=== PATIENT | female | born 1970 | race Caucasian/White ===

== ENCOUNTER 2025-03-08 00:50 | Day surgery (SDC) | payer OTHER, SELFPAY ==
[2025-02-24 14:46] VITALS: BMI 35.6
--- NOTE | 2025-02-24 15:00 | PC.NURSE ---
Report to the Outpatient Waiting Room, entrance under the green pavilion located off [facility], at time _0600_ on date _[id number]_. Planned Procedure Time: _0730_.? Time changes happen often and if your time is changed the preop area will call you the afternoon before. - You and your visitor will be asked to self-screen and do not enter if you have any COVID symptoms. Please call surgeon if you need to reschedule. - A mask is optional within the hospital at this time. Patients may have clear liquids (water, carbonated beverages, clear teas, apple juice) until 3 hours prior to surgery with a maximum of 20 ounces. - No food from midnight until time of surgery and no smoking, or chewing tobacco (or any form of nicotine). No chewing gum, candy or mints. Take only the following medications with a SIP of water on the morning of surgery: __Atenolol, Duloxetine and if needed hydrocodone___ DO NOT STOP ANY OF YOUR OTHER PRESCRIPTION MEDICATIONS PRIOR TO SURGERY EXCEPT THE FOLLOWING Hold all vitamins and supplements for 3 days per anesthesiologist. Medications to discontinue per physician Date to take last akry__[id number]____ Please no make-up, nail lithuanian, hairspray, perfume, deodorant, or body powder the day of surgery.? No jewelry (including any body piercings) or valuables the day of surgery, leave them at home.? Please take a shower or bath the night before, or the morning of, surgery with an antibacterial soap.? Wear comfortable, loose fitting clothing.? - Jewelry must be removed prior to entering the operating room.? Rings and piercings that are not removed may be cut off. - The hospital will not accept responsibility for valuables.? - Please leave all valuables, including medications, at home the day of surgery. If you are going home after surgery, a licensed driver utility worker must drive you home.? - NO public transportation without another adult if you receive anesthesia. - We recommend that an adult stay with you for 24 hours following discharge. - We also recommend that you do not drive, make important decision, drink alcoholic beverages, or take any drugs that were not prescribed by your health care provider for at least 24 hours after your discharge time. Follow any additional instructions given to you from your surgeon. Telephone instructions given to __Regina__and asked if any additional questions and then verbalized understanding. Patient advised to call surgeon office or pre surgery nurse liaison [phone] if any additional questions.
--- NOTE | 2025-03-04 07:25 | PM.IMHP ---
H&P: HPI History of Present Illness Date/Time: 03/04/25 07:25 Chief Complaint: Patient has catching locking and pain of the right knee with a meniscal tear. She has failed conservative treatment like to proceed with arthroscopic intervention. Review of Systems Musculoskeletal: Musculoskeletal: Reports arthralgias, Reports joint swelling and Reports stiffness [facility] Surgical History Surgical History History of surgery Heart, Back, Rt knee, Rt Should, Gall bladder Social History Social History (Updated 02/04/25 @ 09:04 by Jessica Washington [facility]) Smoking packs per day: 1 Smoking cigarettes per day: 20.0 Years smoked: 15 Smoking pack-years: 15.00 Smoking status: Former smoker Tobacco type: cigarettes Smoking end date: 02/25/04 Alcohol intake: current Substance use: never Current Housing: Decline to Answer Concerned About Future Housing: Decline to Answer Difficulty Paying Gas/Electric Bills: Decline to Answer Difficulty Paying for Meds: Decline to Answer Currently Unemployed: Decline to Answer Education: Decline to Answer Difficulty w/ Childcare or Family Care: Decline to Answer Living arrangements: with family Spiritual care concerns: No Meds Home Medications and Allergies Home Medications ?Medication ?Instructions ?Recorded ?Confirmed ?Type atenolol 25 mg tablet 25 mg PO TID 12/08/24 02/24/25 History cetirizine 10 mg tablet (Zyrtec) 10 mg PO DAILY 12/08/24 02/24/25 History cholecalciferol (vitamin D3) 25 25 mcg PO DAILY 12/08/24 02/24/25 History mcg (1,000 unit) capsule hydrocodone 7.5 mg-acetaminophen 1 tablet PO Q6H PRN pain 12/08/24 02/24/25 History 300 mg tablet magnesium hydroxide 400 mg (170 mg 400 mg PO HS 12/08/24 02/24/25 History magnesium) chewable tablet mecobalamin (vitamin B12) 1,000 1,000 mcg PO DAILY 12/08/24 02/24/25 History mcg lozenges meloxicam 7.5 mg tablet 7.5 mg PO DAILY 12/08/24 02/24/25 History montelukast 10 mg tablet 10 mg PO DAILY 12/08/24 02/24/25 History (Singulair) duloxetine 60 mg capsule,delayed 60 mg PO DAILY 02/24/25 02/24/25 History release Allergies Allergy/AdvReac Type Severity Reaction Status Date / Time Sulfa (Sulfonamide Allergy rash Verified 02/24/25 14:43 Antibiotics) Exam Narrative: On exam she has catching locking and pain in the right knee. She is tender along the joint line as a positive Hiral's. Neurologically she is intact. She walks with antalgic gait. Eyes: General: appearance normal, both eyes and all related structures Neck: Neck: supple Resp: Effort & Inspection: normal respiratory effort Cardio: Rate: regular rate Rhythm: regular rhythm No Data to Display Assessment and Plan Assessment and plan (1) Acute medial meniscus tear of right knee: Code(s): S83.241A - Other tear of medial meniscus, current injury, right knee, initial encounter Status: Acute Assessment and Plan: Patient has a medial meniscal tear right knee. Conservative treatment has not been effective. It is she continues to have catching and mechanical symptoms. She would like to proceed with arthroscopic intervention. I discussed risks, benefits, limitations, and alternatives with the patient in detail. She would like to proceed as described. As noted in my previous dictation the radiologist and I somewhat disagree on the results of the MRI scan I told her there is a chance lose the the there is no tears radiologist read it although the meniscus is extruded. She understands with this may be just and the being a diagnostic arthroscopy.
[2025-03-08] VITALS (8 sets, daily range): BP systolic 93–124; BP diastolic 54–80; PULSE 43–63; RESP 10–16; TEMP 36.6; O2SAT 94–100
--- OUTSIDE RECORDS SUMMARY | 2025-03-08 00:53 | XMS_ITS | Continuity of Care Document ---
Author Name [facility] Organization [facility] Care Team Providers Care Paralegals Name Role Phone [facility] Unavailable Unavailable Problems Combined list of problems from Department of Defense and [facility] facilities. It does not include entries that were removed or entered in error. Problem Status Onset Date Problem Type Date of Resolution Comments Source Right knee pain Active 11/16/20 24 Diagnosis 6130C-Af- C-[facility] Back pain Active Condition 6130C-Af- C-[facility] Chronic allergic conjunctivitis1 Active Condition Outside Sour ce Comment: Ocular antihistamine PRN for itching 6130C-Af- C-[facility] Esophageal reflux finding2 Active Condition Outside Source Comment: Medication is working well needs refills 6130C-Af- C-[facility] Generalized anxiety disorder Active Condition 6130C-Af- C-[facility] Major depressive disorder Active Condition 6130C-Af- C-[facility] Migraine Active Condition 6130C-Af- C-[facility] Moderate persistent asthma Active Condition 6130C-Af- C-[facility] PTSD - Post-traumatic stress disorder Active Condition 6130C-Af- C-[facility] Supraventricular tachycardia3 Active Condition Outside Source Comment: Anxiety component as well per the patient. Unclear current palpitations are SVT versus sinus tachycardia. Cardiology referral 6130C-Af- C-[facility] Tachycardia Active Condition 6130C-Af- C-[facility] Allergies, Adverse Reactions, Alerts Combined list of allergies from Department of Defense and Veterans Affairs facilities. It does not include entries that were removed or entered in error. Substance Category Reaction Severity Reaction type Status Date Reported Comments Source acetaminoph en-oxycodon e Propensity to adverse reactions to substance Unknown Active nausea Unknown Organiza tion cefprozil Propensity to adverse reactions to substance Unknown Active 9 Unknown Organiza tion celecoxib Propensity to adverse reactions to substance Unknown Active ulceration s Unknown Organiza tion cephalexin Propensity to adverse reactions to substance Unknown Active 9 Unknown Organiza tion Nuts Food allergy Anaphylaxis Severe Active 6130C-Af -C-[facility] shellfish Propensity to adverse reactions to substance Swelling Active 8 Unknown Organiza tion sulfa drugs Propensity to adverse reactions to substance Rash Active 9 Unknown Organiza tion traMADol Propensity to adverse reactions to substance Unknown Active nausea Unknown Organiza tion Immunizations Combined list of available immunizations from the Department of Defense and Veterans Affairs facilities. Immunization Series Date Given Administered By Site Reaction Lot Number CVX Code Drug Public Health Registrar Status Comments Source influenza, seasonal, injectable 2013 Margareth Arm [id number] sanofi pasteur complet ed influenza , seasonal, injectabl e 12/29/13 Given Ambulat ory Pharmac y tetanus, diphtheria, acellular pertu is 2008 Sarbjit gallagher Arm [id number] GlaxoSmithKli ne complet ed tetanus, diphtheri a, acellular pertussis 11/11/09 Given Ambulat ory Pharmac y influenza virus vaccine, live 2008 [id number] 111 [employer] complet ed influenza virus vaccine, live 11/11/09 Given Ambulat ory Pharmac y DTaP 1981 Transcr ibed 20 Unknown complet ed DTaP 05/19/82 Given Ambulat ory Pharmac y DTaP 1972 Transcr ibed 20 Unknown complet ed DTaP 09/30/73 Given Ambulat ory Pharmac y poliovirus vaccine, inactivated 1972 Transcr ibed 10 Unknown complet ed polioviru s vaccine, inactivat ed 08/31/73 Given Ambulat ory Pharmac y DTaP 1972 Transcr ibed 20 Unknown complet ed DTaP 08/31/73 Given Ambulat ory Pharmac y measles/mumps /rubella virus vaccine 1972 Transcr ibed 03 Unknown complet ed measles/m umps/rube lla virus vaccine 08/14/73 Given Ambulat ory Pharmac y poliovirus vaccine, inactivated 1972 Transcr ibed 10 Unknown complet ed polioviru s vaccine, inactivat ed 72 Given Ambulat ory Pharmac y Results Combined list of recent chemistry, hematology and other laboratory results from Department of Defense and Veterans Affairs, ranging from 15 months to all on record, depending upon the facility. Order Name Results Value Reference Range Date Interpretation Specimen Comments Source Immunology /Serology Thyroid Peroxidase Ab <15 IU/mL 07/25 N Interpretive Data: Values above 35 IU/mL are generally associated with autoimmune thyroiditis, but elevations are also seen in other autoimmune diseases. In patients with subclinical hypothyroidi sm, the presence of thyroperoxid ase (TPO) antibodies predicts a higher risk of developing overt hypothyroidi sm, 4.3% per year versus 2.1% per year in antibody-neg ative individuals. Furthermore, it raises the concern that such patients may be at increased risk of developing other autoimmune diseases, such as adrenal insufficienc y and type 1 diabetes. The frequency of detectable anti-TPO observed in nonimmune thyroid disease is similar to the 10% to 12% observed in a healthy population with normal thyroid function. There is a good association between the presence of autoantibodi es against TPO and histological thyroiditis. However, in view of the extensive regenerative capacity of the thyroid under the influence of thyroid-stim ulating hormone, chronic thyroid disease may be present for years before the clinical manifestatio n of hypothyroidi sm becomes evident, if ever. Moderately increased levels of thyroperoxid ase (TPO) antibodies may be found in patients with nonthyroid autoimmune disease such as pernicious anemia, type 1 diabetes, or other disorders that activate the immune system. No reference ranges available for pediatric patients. Methodology: Electrochemi luminescence 5600A-U [facility] Chemistry Hemoglobin A1c 5.5 % 4.0 - 5.6 07/24 N Interpretive Data: Normal: 4.0 - 5.6% Increased Risk: 5.7 - 6.4% Diabetic Range: 6.5% For patients without diabetes, the normal range for the hemoglobin A1c test is between 4% and 5.6%. Hemoglobin A1c levels between 5.7% and 6.4% indicate increased risk of diabetes, and levels of 6.5% or higher indicate diabetes. Because studies have repeatedly shown that akw-vi-ugeac ol diabetes results in complication s from the disease, the goal for people with diabetes is a hemoglobin A1c less than 7%. The higher the hemoglobin A1c, the higher the risks of developing complication s related to diabetes. If confirmation is needed, consider recalling the patient and ordering Hemoglobin Electrophore sis. [facility] Chemistry eAvg Glucose 111 mg/dL 07/[address] [place] [address] Chemistry eGFR CKD EPI 105 mL/min /1.73_ m2 07/10 Interpretive Data: Estimated Glomerular Filtration Rate (eGFR) calculated using the 2020 Chronic Kidney Disease-Epid emiology (CKD-EPI) Collaboratio n creatinine equation; units of measure are mL/min/1.73 m2. Results are only valid for adults (>=18 years) whose serum creatinine is in steady state. eGFR calculations are not valid for patients with acute kidney injury and for patients on dialysis. Creatinine-b ased estimates of kidney function may also be inaccurate in patients with reduced creatinine generation due to decreased muscle mass (e.g., malnutrition , severe hypoalbumine alva, sarcopenia, chronic neuromuscula r disease, amputations, severe heart failure or liver disease) and in patients with increased creatinine generation due to increased muscle mass (e.g., muscle builders, anabolic steroids) or increased dietary intake. CKD is diagnosed based on abnormalitie s of kidney structure or function, present for >3 months, with implications for health and disease. CKD is classified and staged based on cause, eGFR and albuminuria (quantified as urine albumin to creatinine ratio). An eGFR >60 mL/min/1.73 m2 in the absence of increased urine albumin excretion or structural abnormalitie s does not CKD. eGFR provides only an estimate of measured GFR within +/- 30% for most patients. As mentioned, nutritional status and muscle mass, among many factors, may lead to inaccuracy in the estimate. Consider ordering the creatinine-c ystatin C panel if better accuracy is needed for clinical decision-consuelo ing. eGFR (mL/min/1.73 m2) CKD stage Interpretati on Normal 60-89 Mild decrease 45-59 Mild to moderate decrease 30-44 Moderate to severe decrease 15-29 Severe decrease <15 Kidney failure -3 [facility] Chemistry BUN/Creat Ratio 13 mg/dL 12 - 20 07/10 N [address] [place] [address] Chemistry AGAP 12.00 0.00 - 15.00 07/[address] [place] [address] Chemistry Calcium 9.6 mg/dL 8.4 - 10.2 07/[address] [place] [address] Chemistry BUN 9 mg/dL 7 - 20 07/10 N - [address] [place] [address] Chemistry Chloride 109 mmol/L 98 - 107 07/[address] [place] [address] Chemistry Creatinine Level 0.70 mg/dL 0.57 - 1.11 07/[address] [place] [address] Chemistry Glucose Lvl 107 mg/dL 74 - 99 07/[address] [place] [address] Chemistry Potassium Lvl 4.4 mmol/L 3.5 - 5.1 07/[address] [place] [address] Chemistry CO2 25 mmol/L 22 - 29 07/[address] [place] [address] Chemistry Sodium 146 mmol/L 136 - 145 07/[address] [place] [address] Chemistry HDL Cholesterol 46 mg/dL 40 - 59 07/10 N Interpretive Data: HDL (HIGH DENSITY LIPOPROTEIN) : ADULTS: Low: < 40 mg/dL High: >/= 60 mg/dL AGES 0 -19: Low: < 40 mg/dL Borderline Low: 40 - 45 mg/dL Acceptable: > 45 mg/dL [address] [place] [address] Chemistry Chol/HDL 6 mg/dL 07/[address] [place] [address] Chemistry Triglycerid es 330 mg/dL 7 - 149 07/10 H Interpretive Data: AGES 0-9: Desirable: < 75 mg/dL Borderline High: 75-99 mg/dL High: >/= 100 mg/dL AGES 10-19: Desirable: < 90 mg/dL Borderline High: 90-129 mg/dL High: >/= 130 mg/dL ADULTS: Desirable: < 150 mg/dL Borderline High: 150-199 mg/dL High: >/= 240 mg/dL Very High: >/= 500 mg/dL [address] [place] [address] Chemistry Cholesterol Total 274 mg/dL 07/10 H Interpretive Data: According to the [place] [employer]: AGES 0-19: Desirable: < 170 mg/dL Borderline High: 170-199 mg/dL High Blood Cholesterol: >/= 200 mg/dL ADULTS: Desirable < 200 mg/dL Borderline High: 200-239 mg/dL High Blood Cholesterol: >/= 240 mg/dL -[address] [place] [address] Chemistry LDL 196 mg/dL 100 - 130 07/10 H Interpretive Data: AGES 0-19: Desirable: < 110 mg/dL Borderline High: 110-129 mg/dL High: >/= 130 mg/dL ADULTS: Desirable: <100 mg/dL Near/above optimal: 100-130 mg/dL Borderline High: 131-159 mg/dL High: 160-189 mg/dL Very High: 190 mg/dL - [facility] [place] Chemistry LDL/HDL 4 07/10- [address] [place] [address] Chemistry TSH 1.700 mIU/L 0.270 - 4.200 07/10 N Interpretive Data: Recommend: TPO/Thyroper oxidase Antibody when TSH result is > 4.2 uIU/mL 5600A-U [facility] EPIL[facility] Vital Signs Combined list of inpatient and outpatient Vital Signs from Department of Defense and Veterans Affairs, ranging from 12 months to all on record, depending upon the facility. Vital Sign Value Date Comments Source Systolic Blood Pressure 115 mm[Hg] 06/18/2024 14:56:00 6204U-Hi-V-375 [facility] Diastolic Blood Pressure 75 mm[Hg] 06/18/2024 14:56:00 3368R-Rr-M-375 [facility] BP Site Left arm 06/18/2024 14:56:00 30C -Gerri-C-375 [facility] Blood Pressure Manual Automatic 06/18/2024 14:56:00 1984M-Vo-T-375Th [facility] Temperature Oral 36.7 Khushboo 06/18/2024 14:56:00 4193F-Rw-B-375 [facility] Respiratory Rate 16 br/min 06/18/2024 14:56:00 3543A-Xk-X-375Th [facility] Peripheral Pulse Rate 70 bpm 06/18/2024 14:56:00 5229T-Rv-S-375 [facility] Mean Arterial Pressure, Calc 88 mm[Hg] 06/18/2024 14:56:00 0875M-Rm-Y-3 [facility] Respiratory Rate 14 br/min 08/13/2024 13:26:00 8041M-Dm-L-[facility] BP Site Left arm 08/13/2024 13:26:00 6130C -Af-C-[facility] Blood Pressure Manual Automatic 08/13/2024 13:26:00 1371T-Fy-T-[facility] Systolic Blood Pressure 106 mm[Hg] 08/13/2024 13:26:00 5661V-Eu-M-[facility] Diastolic Blood Pressure 73 mm[Hg] 08/13/2024 13:26:00 6346E-Ea-O-375[facility] Mean Arterial Pressure, Calc 84 mm[Hg] 08/13/2024 13:26:00 0046S-Qm-O-3 [facility] Peripheral Pulse Rate 56 bpm 08/13/2024 13:26:00 4355W-Es-R-[facility] Systolic Blood Pressure 103 mm[Hg] 10/09/2023 15:45:00 9990D-Uu-G-[facility] Diastolic Blood Pressure 72 mm[Hg] 10/09/2023 15:45:00 0309E-Lj-I-[facility] Blood Pressure Manual Automatic 10/09/2023 15:45:00 9213T-Pl-S-375[facility] BP Site Right arm 10/09/2023 15:45:00 6130C -Af-C-[facility] Mean Arterial Pressure, Calc 82 mm[Hg] 10/09/2023 15:45:00 6082O-Em-V-3 [facility] Respiratory Rate 16 br/min 10/09/2023 15:45:00 9240D-Or-R-[facility] Peripheral Pulse Rate 72 bpm 10/09/2023 15:45:00 4444C-Ml-A-[facility] Systolic Blood Pressure 118 mm[Hg] 10/31/2023 20:44:00 9589P-Xe-H-375[facility] Diastolic Blood Pressure 67 mm[Hg] 10/31/2023 20:44:00 4511X-Sd-Y-[facility] Mean Arterial Pressure, Calc 84 mm[Hg] 10/31/2023 20:44:00 0360U-Py-H-3 [facility] Peripheral Pulse Rate 57 bpm 10/31/2023 20:44:00 9836M-Fz-A-[facility] Respiratory Rate 18 br/min 10/31/2023 20:44:00 7384Y-Pg-X-375[facility] BP Site Left arm 10/31/2023 20:44:00 6130C -Af-C-375[facility] Blood Pressure Manual Automatic 10/31/2023 20:44:00 8831M-Ng-K-375[facility] Temperature Oral 36.4 Khushboo 07/18/2023 15:11:00 6624Y-Ph-N-375[facility] Respiratory Rate 16 br/min 07/18/2023 15:11:00 6455V-Ti-W-375[facility] Peripheral Pulse Rate 83 bpm 07/18/2023 15:11:00 2075T-Hr-X-375[facility] Mean Arterial Pressure, Calc 79 mm[Hg] 07/18/2023 15:11:00 6978L-Mj-V-3 [facility] Blood Pressure Manual Automatic 07/18/2023 15:11:00 3920I-Ib-O-[facility] BP Site Left arm 07/18/2023 15:11:00 6130C -Af-C-375[facility] Systolic Blood Pressure 103 mm[Hg] 07/18/2023 15:11:00 9281C-Vw-Y-[facility] Diastolic Blood Pressure 67 mm[Hg] 07/18/2023 15:11:00 6678E-Fr-Y-375[facility] Blood Pressure Manual Automatic 07/30/2023 14:21:00 1204A-Gt-A-375[facility] BP Site Left arm 07/30/2023 14:21:00 6130C -Af-C-[facility] Respiratory Rate 16 br/min 07/30/2023 14:21:00 2098G-Rq-S-375[facility] Mean Arterial Pressure, Calc 86 mm[Hg] 07/30/2023 14:21:00 8667L-Jw-I-3 [facility] Peripheral Pulse Rate 82 bpm 07/30/2023 14:21:00 1058Z-Qc-P-[facility] Systolic Blood Pressure 109 mm[Hg] 07/30/2023 14:21:00 3806Z-Al-C-[facility] Diastolic Blood Pressure 75 mm[Hg] 07/30/2023 14:21:00 8027M-Jp-I-[facility] Systolic Blood Pressure 106 mm[Hg] 11/03/2024 17:22:00 5277O-We-Y-[facility] Diastolic Blood Pressure 68 mm[Hg] 11/03/2024 17:22:00 5521H-Hb-T-[facility] Blood Pressure Manual Automatic 11/03/2024 17:22:00 0027J-Ea-K-[facility] BP Site Left arm 11/03/2024 17:22:00 6130C -Af-C-[facility] Peripheral Pulse Rate 68 bpm 11/03/2024 17:22:00 2972A-Ra-U-[facility] Mean Arterial Pressure, Calc 81 mm[Hg] 11/03/2024 17:22:00 0436N-Wb-I-3 [facility] Systolic Blood Pressure 97 mm[Hg] 07/08/2023 19:05:00 0706G-Ag-C-[facility] Diastolic Blood Pressure 63 mm[Hg] 07/08/2023 19:05:00 1781E-Dt-W-[facility] Mean Arterial Pressure, Calc 74 mm[Hg] 07/08/2023 19:05:00 4682L-Hq-X-3 [facility] Peripheral Pulse Rate 64 bpm 07/08/2023 19:05:00 9612C-Mo-F-[facility] Respiratory Rate 16 br/min 07/08/2023 19:05:00 1939X-Pv-W-[facility] BP Site Left arm 07/08/2023 19:05:00 6130C -Af-C-[facility] Blood Pressure Manual Automatic 07/08/2023 19:05:00 1565P-Ws-P-[facility] Systolic Blood Pressure 105 mm[Hg] 09/12/2023 13:21:00 7705O-Wl-F-[facility] Diastolic Blood Pressure 72 mm[Hg] 09/12/2023 13:21:00 4124Q-Tw-F-[facility] Mean Arterial Pressure, Calc 83 mm[Hg] 09/12/2023 13:21:00 2145J-Ec-U-3 [facility] Peripheral Pulse Rate 77 bpm 09/12/2023 13:21:00 3340G-Mp-P-[facility] Respiratory Rate 16 br/min 09/12/2023 13:21:00 4187M-Ij-F-[facility] BP Site Left arm 09/12/2023 13:21:00 6130C -Af-C-[facility] Blood Pressure Manual Automatic 09/12/2023 13:21:00 4818Q-Ky-Q-[facility] Peripheral Pulse Rate 62 bpm 07/05/2023 16:00:00 3784T-Sr-K-[facility] Mean Arterial Pressure, Calc 77 mm[Hg] 07/05/2023 16:00:00 3512Y-Ir-C-3 [facility] Respiratory Rate 18 br/min 07/05/2023 16:00:00 6458H-Oq-Q-[facility] Systolic Blood Pressure 98 mm[Hg] 07/05/2023 16:00:00 1418B-Lc-R-[facility] Diastolic Blood Pressure 67 mm[Hg] 07/05/2023 16:00:00 8204K-Nx-C-[facility] Blood Pressure Manual Automatic 07/05/2023 16:00:00 9600V-Ui-G-[facility] BP Site Left arm 07/05/2023 16:00:00 6130C -Af-C-[facility] Encounters Combined list of: 1) Encounters from Department of Veterans Affairs facilities going backup to the last 18 months, not all MI inpatient encounters are included; 2) Encounters from the Department of [facility] facilities going backup to 280 months. Location Location Details Encounter Type Encounter Number Reason For Visit Attending Provider ADM Date DC Date Status Disposition Source 0055A-375 th [facility] Outpatient [id number] TOMAS BARBOUR 11/10 Discharge Disposition: Home or Self Care 0055A-3 [facility] [place] 6130C-Af- C-[facility] Between Visit [id number] Pain in right knee 11/16 Discharge Disposition: Home or Self Care 6130C-A f-C-375 [facility] [place] 6130C-Af- C-[facility] Between Visit [id number] 02/08 Discharge Disposition: Home or Self Care 6130C-A f-C-375 [facility] [place] 6130C-Af- C-375Th [facility] Between Visit [id number] 02/17 Discharge Disposition: Home or Self Care 6130C-A f-C-375 [facility] [place] 6130C-Af- C-[facility] Between Visit [id number] 02/19 Discharge Disposition: Home or Self Care 6130C-A f-C-375 [facility] [place] Procedures Combined list of: 1) Procedures from Department of Veterans Affairs facilities going back up to thelast 18 months, not all MI non-surgical procedures are included; 2) All procedures from the Department of [facility] facilities. Procedure Procedure Type Code Date Perfomer Comments Sourc e No data available for this section Ambulatory P harmacy Social History Combined list of available smoking, tobacco, and other social history from Department of Defense and Veterans Affairs facilities. Social History Type Response Date Comment Sourc e Sex Representation Female (finding) 10/06/2021 Unknown Organization Tobacco Frequent/Daily expos ure to secondhand smoke in indoor/confined spaces No. Cigarette use: Former-cigarette user. Other Tobacco use: Never-other tobacco user (not cigarettes). Ambulatory Pharmacy Sexual Orientation Ambula tory Pharmacy Gender identity Ambulator y Pharmacy Assessment and Plan Combined list of future care activities from Department of Defense and Veterans Affairs facilities (e.g., assessment and plan notes, appointments, orders, and referrals). Additional future care activities may be listed in the Plan of Care section. Result Assessment and Plan Date Source Assessment and Plan Extracted from:Title : [facility] [place] - Right knee pain Author: TOMAS ORTIZ DO Date: 11/03/24 1. R ight knee pain C hronic. Stable. History and physical exam suspicious for further meniscal damage, mild laxity with valgus stress concerning for possible MCL damage. Given that pt has failed conservative measures, will obtain x-ray. MRI of right knee and refer pt to ortho. Will further disposition as needed based on imaging. Tomas Ortiz DO, Alexis, [employer], Legal Contracts Specialist [facility], [place] [employer] Addendum by PAULA STEPHEN MD on November 09, 2024 08:36:10 HOME AID I certify that I was present for case discussion in the Family Medicine preceptor room at the time of this encounter. I have reviewed the note and agree with the findings, assessment, and plan except as I have documented below. Follow up as listed. All labs/imaging/consults to be followed by the ordering provider. Paula Stephen MD Extracted from:Title: R Knee Pain - Office Clinic Note Author: ARNOLD ZAVALA MD Date: 08/13/24 1. R ight knee pain Acute, right knee pain with mild swelling. Physical exam c/w IT band tenosynovitis vs. meniscal tear Hx of meniscal tear and surgery in early . Able to bear weight and ambulate. Discussed conservative managment, NSAIDs (recommend doubling dose of meloxicam for 1-2 weeks) Discussed obtaining XR, but patient declined XR at this time, doubt fracture, more likely soft tissue with possible underlying arthritis given prior surgery. Recommended PT, patient requesting home physical therapy, given Rx3 handouts If no improvement in 4-6 weeks, consider xray, MRI and possible referral to ortho 2. A llergy to peanut Patient reports severe allergy to peanut Rx for epi-pen written Ordered: EPINEPHrine(EpiPen 2-Srikanth 0.3 mg injectable kit), See Instructions, Inject 1 pen into muscle of mid-outer thigh as needed for allergic emergency. Seek medical attention. May repeat dose with new pen after 5 minutes if symptoms persist, # 2 EA, 0 total refill(s), Maintenance, Inject 1 pen into muscle... [ Orders: meloxicam(Mobic 7.5 mg oral tablet), 1 tab(s), Oral, Daily, # 90 tab(s), 1 total refill(s), Maintenance, 1 tab(s) Oral Daily,x90 days, Pharmacy: [facility] #[id number] [External Rx] Addendum by ARNOLD ZAVALA MD on August 13, 2024 10:03:54 CDT Also, patient had bradycardia on visit, asymptomatic, has had bradycardia in the past. Observe for now. Extracted from:Title: [facility] [place]- tachycardia Author: DONALD SOLORZANO MD Date: 06/18/24 1. T achycardia 53y/o F with elevated HR after minimal execution such after [address] Hx of 3x ablations. Has not seen Cardio in many years. May need Holter monitor and or ablation. Plan: - Refer to Cardio Ordered: Referral Request 2.0 - DoD 2. S upraventricular tachycardia See above. Ordered: Referral Request 2.0 - DoD Capt [place] (), [facility] Legal Contracts Specialist PGY-[address] [place] [address] Operations [facility] [place], [place] Addendum by RICARDO GALEAS MD on June 18, 2024 17:01:18 CDT I certify that I was present for case discussion in the Family Medicine preceptor room at the time of this encounter. I have reviewed the note and agree with the findings, assessment, and plan except as I have documented below. Follow up as listed. All labs/imaging/consults to be followed by the ordering provider. Maj Brenda Crane) Family Medicine Physician [facility] [place], [place] Extracted from:Title: FM Meds Refill Author: ALEX BLAKE MD Date: 03/31/24 1. S easonal allergy Chronic, well controlled. Refill montelukast and zyrtec. Ordered: montelukast(montelukast 10 mg oral tablet), 1 tab(s), Oral, Daily, # 90 tab(s), 3 total refill(s), Maintenance, 1 tab(s) Oral Daily, Pharmacy: [facility] #[id number] [External Rx] cetirizine(ZyrTEC 10 mg oral tablet), 1 tab(s), Oral, BID, PRN allergy symptoms, # 180 tab(s), 3 total refill(s), Maintenance, 1 tab(s) Oral BID,PRN:allergy symptoms, Pharmacy: [facility] #[id number] [External Rx] 2. S upraventricular tachycardia Symptoms well controlled. Refill atenolol 25 mg BID. Orders: atenolol(atenolol 25 mg oral tablet), 1 tab(s), Oral, BID, 180 tab(s), 0 Refill(s), # 180 tab(s), 3 total refill(s), Maintenance, 1 tab(s) Oral BID,Instr:180 tab(s), 0 Refill(s), Pharmacy: [facility] #[id number] [External Rx] Alex Blake MD Legal Contracts Specialist, PGY-3 [place] Addendum by PAULA STEPHEN MD on March 31, 2024 09:13:01 CDT I certify that I was present for case discussion in the Family Medicine preceptor room at the time of this encounter. I have reviewed the note and agree with the findings, assessment, and plan except as I have documented below. Follow up as listed. All labs/imaging/consults to be followed by the ordering provider. Paula Stephen MD Extracted from:Title: FM - Referrals Author: ARANZA PANCHAL MD-RESIDENT Date: 02/14/24 1. B ack pain Chronic, uncontrolled. Is scheduled but needs referral for pain management. Pain Management physician requesting XR spine. Ordered. Ordered: XR Spine Thoracic 4+ Views Referral Request 2.0 2. B nathaniel cell carcinoma of skin of other parts of face Hx BCC, follows with dermatology, has appointment in March. Updated referral placed. Ordered: XR Spine Lumbosacral 4+ Views Referral Request 2.0 Capt Aranza Panchal DO Legal Contracts Specialist, PGY-3 [place] Addendum by RICARDO GALEAS MD on February 17, 2024 14:32:57 CDT I certify that I was present for case discussion in the Family Medicine preceptor room at the time of this encounter. I have reviewed the note and agree with the findings, assessment, and plan except as I have documented below. Follow up as listed. All labs/imaging/consults to be followed by the ordering provider. Capt Rosa Maria () Family Medicine Physician [facility] [place], [place] Extracted from:Title: Fam Med - med refills Author: KOLE MATA MD Date: 12/27/23 Asthma Chronic, well controlled with current medicaitons. Continue albuterol, zyrtec, and singulair. Ordered: albuterol(albuterol 90 mcg/inh aerosol inhaler), INHALE 1 TO 2 PUFFS BY MOUTH EVERY 4-6 HOURS NEEDED FOR SHORTNESS OF BREATH/COUGH/WHEEZE, Inhale, every 6 hr, # 17 g, 3 total refill(s), Maintenance, INHALE 1 TO 2 PUFFS BY MOUTH EVERY 4-6 HOURS NEEDED FOR SHORTNESS OF BREATH/COUGH/WHEEZE Inhale... montelukast(montelukast 10 mg oral tablet), 1 tab(s), Oral, Daily, # 90 tab(s), 3 total refill(s), Maintenance, 1 tab(s) Oral Daily, Pharmacy: [facility] #[id number] Back pain Chronic, continue cymbalta. Ordered: DULoxetine(Cymbalta 60 mg oral delayed release capsule), 1 cap(s), Oral, Daily, do not crush or chew, # 90 cap(s), 1 total refill(s), Maintenance, 1 cap(s) Oral Daily,Instr:do not crush or chew, Pharmacy: [facility] #[id number] PTSD - Post-traumatic stress disorder Chronic, improved with trazodone and prazosin. Continue. Ordered: DULoxetine(Cymbalta 60 mg oral delayed release capsule), 1 cap(s), Oral, Daily, do not crush or chew, # 90 cap(s), 1 total refill(s), Maintenance, 1 cap(s) Oral Daily,Instr:do not crush or chew, Pharmacy: [facility] #[id number] prazosin(prazosin 1 mg oral capsule), 1 cap(s), Oral, every day at bedtime, # 90 cap(s), 1 total refill(s), Maintenance, 1 cap(s) Oral every day at bedtime, Pharmacy: [facility] #[id number] Orders: meloxicam(Mobic 7.5 mg oral tablet), 1 tab(s), Oral, Daily, # 90 tab(s), 1 total refill(s), Maintenance, 1 tab(s) Oral Daily,x90 days, Pharmacy: [facility] #[id number] traZODone(traZODone 50 mg oral tablet), 1-2 tabs, Oral, every day at bedtime, PRN sleep, # 45 tab(s), 0 total refill(s), Maintenance, 1-2 tabs Oral every day at bedtime,PRN:sleep, Pharmacy: [facility] #[id number] Kole Mata MD PGY-3 Family Medicine [place] Addendum by AQUILINO BEDOYA MD on December 29, 2023 11:58:54 HOME AID I certify that I was immediately available to review and discuss this patient. T he resident discussed the diagnosis and treatment plan for this patient with me [id number]. I agree with these written findings and plan. Capt Aquilino Bedoya DO, CAQSM Sports/Family Medicine Faculty Physician [address] [place] [address], [facility] [place], [place] Extracted from:Title: Fam Med - PTSD Author: KOLE MATA MD Date: 10/31/23 1. P TSD - Post-traumatic stress disorder Chronic, poorly controlled. Continued to recommend advanced trauma services. Patient does not show interest in seeking further care. Refilled hydroxizine and cymbalta. Can continue current medications safely. Passive SI as stated below, [facility] concurs patient continues to be safe for outpatient care. Counseled about 988 hotline and emergency room precautions. PHQ and BETTE consistently elevated. 2. B ack pain Chronic, psychogenic in nature. Patient requesting opiate medications. This provider has made it clear to the patient they will not help her terminal clerk and will very likely hurt her. Patient with passive SI related to pain. Toradol and trigger point injections offered, patient declined stating they will not help. Orders: DULoxetine(Cymbalta 60 mg oral delayed release capsule), 1 cap(s), Oral, Daily, do not crush or chew, # 90 cap(s), 0 total refill(s), Maintenance, 1 cap(s) Oral Daily,Instr:do not crush or chew, Pharmacy: [facility] #[id number] [External Rx] hydrOXYzine(Vistaril 25 mg oral capsule), 1 cap(s), Oral, QID, PRN anxiety, # 60 cap(s), 0 total refill(s), Maintenance, 1 cap(s) Oral QID,PRN:anxiety, Pharmacy: [facility] #[id number] [External Rx] Kole Maat MD PGY-3 Family Medicine [employer] Extracted from:Title: [facility] Med - PTSD Author: KOLE MATA MD Date: 10/11/23 1. P TSD - Post-traumatic stress disorder Chronic, poorly controlled. PHQ: 25 BETTE:19 Continued to encourage elevated level of care. Patient requesting that she continue her therapy with [facility] and this provider. Reinforced to patient that she would benefit from dedicated trauma therapy. Refilled hydroxizine and trazodone. Follow up in 4 weeks, continue to encourage psychiatry establishment. Kole Mata MD PGY-3 Family Medicine [employer] Addendum by JAMAL BISHOP MD on October 11, 2023 09:20:59 HOME AID I was present and available in the Family Medicine Clinic to discuss this patient's care for the duration of the appointment. I agree with the residents assessment and plan as document with the following addendum: passive thoughts of being but not plan or intent. Jamal Bishop MD. Family Medicine Faculty. Extracted from:Title: Family Medicine - PTSD Author: KOLE MATA MD Date: 09/12/23 1. P TSD - Post-traumatic stress disorder Chronic. PHQ: 21 BETTE: 16 Moderately controlled. Improved with medications. Nightmares better with Prazosin. Sleep and acute anxiety improved with hydroxizine and trazodone. Chronic back and ankle pain improved with mobic and cymbalta. Suspect pain is physical manifestation of PTSD. Plan to continue cymbalta for at least 8 weeks and then revisit change in medication. Would try fluoxetine vs other. Plan to speak with PharmD pain specialist for consultation. Orders: traZODone(traZODone 50 mg oral tablet), 1-2 tabs, Oral, every day at bedtime, PRN sleep, # 45 tab(s), 0 total refill(s), Maintenance, 1-2 tabs Oral every day at bedtime,PRN:sleep, Pharmacy: [facility] #[id number] [External Rx] Kole Mata MD PGY-3 Family Medicine [place] Addendum by RICARDO GALEAS MD on September 12, 2023 14:18:30 CDT I certify that I was present for case discussion in the Family Medicine preceptor room at the time of this encounter. I have reviewed the note and agree with the findings, assessment, and plan except as I have documented below. Follow up as listed. All labs/imaging/consults to be followed by the ordering provider. Dr Mata coordinating with [facility] team to try and assist in finding psychiatry Capt Brenda Crane) Family Medicine Physician [facility] [place] Extracted from:Title: Family Medicine - PTSD Author: KOLE MATA MD Date: 07/30/23 1. P TSD - Post-traumatic stress disorder Chronic. Poorly controlled. Emphasized importance of psychiatry evaluation and treatment. Recommended patient seek a psychiatrist with trauma specialization. Advised this clinic is happy to continue to support her in the meantime but psychiatric care will be imperative for her improvement. Ordered: traZODone(traZODone 50 mg oral tablet), 1-2 tabs, Oral, every day at bedtime, PRN sleep, # 45 tab(s), 0 total refill(s), Maintenance, 1-2 tabs Oral every day at bedtime,PRN:sleep, Pharmacy: [facility] #[id number] [External Rx] 2. B ack pain Chronic, suspect somatic manifestation of chronic PTSD. Switching from paxil to cymbalta today. Discussed 3 days of overlap in medication because of the short half life associated with paxil and longer half life of cymbalta. Orders: DULoxetine(Cymbalta 60 mg oral delayed release capsule), 1 cap(s), Oral, Daily, do not crush or chew, # 60 cap(s), 0 total refill(s), Maintenance, 1 cap(s) Oral Daily,Instr:do not crush or chew, Pharmacy: [facility] #[id number] [External Rx] prazosin(prazosin 1 mg oral capsule), 1 cap(s), Oral, every day at bedtime, # 60 cap(s), 0 total refill(s), Maintenance, 1 cap(s) Oral every day at bedtime, Pharmacy: [facility] #[id number] [External Rx] hydrOXYzine(Vistaril 25 mg oral capsule), 1 cap(s), Oral, QID, PRN anxiety, # 40 cap(s), 0 total refill(s), Maintenance, 1 cap(s) Oral QID,PRN:anxiety, Pharmacy: [facility] #[id number] [External Rx] Kole Mata MD PGY-3 Family Medicine [employer] Addendum by UNA SPARKS DO on August 01, 2023 15:51:37 CDT I certify that I was present for case discussion in the Family Medicine preceptor room at the time of this encounter. I have reviewed the note and agree with the findings, assessment, and plan except as I have documented below. Follow up as listed. All labs/imaging/consults to be followed by the ordering provider. Una Sparks, , [facility], Staff Physician Extracted from:Title: Ambulatory Patient Education Author: SPRING TRINH LCSW Date: 07/18/23 Mental and Behavioral Health Managing Post-Traumatic Stress Disorder If you have been diagnosed with post-traumatic stress disorder (PTSD), you may be relieved that you now know why you have felt or behaved a certain way. Still, you may feel overwhelmed about the treatment ahead. You may also wonder how to get the support you need and how to deal with the condition day-to-day. If you are living with PTSD, there are ways to help you recover from it and manage your symptoms. How to manage lifestyle changes Managing stress Stress is your body's reaction to life changes and events, both good and bad. Stress can make PTSD worse. Take the following steps to manage stress: Talk with your health care provider or a counselor if you would like to learn more about techniques to reduce your stress. He or she may suggest some stress reduction techniques such as: Muscle relaxation exercises. Regular exercise. Meditation, yoga, or other mind b guille exercises. Breathing exercises. Listening to quiet music. Spending time outside. Maintain a healthy lifestyle. Eat a healthy diet, exercise regularly, get plenty of sleep, and take time to relax. Spend time with others. Talk with them about how you are feeling and what kind of support you need. Try not to isolate yourself, even though you may feel like doing that. Isolating yourself can delay your recovery. Do activities and hobbies that you enjoy. Pace yourself when doing stressful things. Take breaks, and reward yourself when you finish. Make sure that you do not overload your schedule. Medicines Your health care provider may suggest certain medicines if he or she feels that they will help to improve your condition. Medicines for depression (antidepressants) or severe loss of contact with reality (antipsychotics) may be used to treat PTSD. Avoid using alcohol and other substances that may prevent your medicines from working properly. It is also important to: Talk with your pharmacist or health care provider about all medicines that you take, their possible side effects, and which medicines are safe to take together. Make it your goal to take part in all treatment decisions (shared decision-making). Ask about possible side effects of medicines that your health care provider recommends, and tell him or her how you feel about having those side effects. It is best if shared decision-making with your health care provider is part of your total treatment plan. If your health care provider prescribes a medicine, you may not notice the full benefits of it for 4 8 weeks. Most people who are treated for PTSD need to take medicine for at least 6 1 2 months before they feel better. If you are taking medicines as part of your treatment, do not stop taking medicines before you ask your health care provider if it is safe to stop. You may need to have the medicine slowly decreased (tapered) over time to lower the risk of harmful side effects. Relationships Many people who have PTSD have difficulty trusting others. Make an effort to: Take risks and develop trust with close friends and family members. Developing trust in others can help you feel safe and connect you with emotional support. Be open and honest about your feelings. Have fun and relax in safe spaces, such as with friends and family. Think about going to couples counseling, family education classes, or family therapy. Your loved ones may not always know how to be supportive. Therapy can be helpful for everyone. How to recognize changes in your condition Be aware of your symptoms and how often you have them. The following symptoms mean that you need to seek help for your PTSD: You feel suspicious and angry. You have repeated flashbacks. You avoid going out or being with others. You have an increasing number of fights with close friends or family members, such as your spouse. You have thoughts about hurting yourself or others. You cannot get relief from feelings of depression or anxiety. Follow these instructions at home: Lifestyle Exercise regularly. Try to do 30 or more minutes of physical activity on most days of the week. Try to get 7 9 hours of sleep each night. To help with sleep: Keep your bedroom cool and dark. Avoid screen time before bedtime. This means avoiding use of your TV, computer, tablet, and cell phone. Practice self-soothing skills and use them daily. Try to have fun and seek humor in your life. Eating and drinking Do not eat a heavy meal during the hour before you go to bed. Do not drink alcohol or caffeinated drinks before bed. Avoid using alcohol or drugs. General instructions If your PTSD is affecting your marriage or family, seek help from a family therapist. Remind yourself that recovering from the trauma is a process and takes time. Take ebds-ert-hnopxub and prescription medicines only as told by your health care provider. Make sure to let all of your health care providers know that you have PTSD. This is especially important if you are having surgery or need to be admitted to the hospital. Keep all follow-up visits as told by your health care providers. This is important. Where to find support Talking to others Explain that PTSD is a mental health problem. It is something that a person can develop after experiencing or seeing a life-threatening event. Tell them that PTSD makes you feel stress like you did during the event. Talk to your loved ones about the symptoms you have. Also tell them what things or situations can cause symptoms to start (are triggers for you). Assure your loved ones that there are treatments to help PTSD. Discuss possibly seeking family therapy or couples therapy. If you are worried or fearful about seeking treatment, ask for support. Keep daily contact with at least one trusted friend or family member. Finances Not all insurance plans cover mental health care, so it is important to check with your insurance carrier. If paying for co-pays or counseling services is a problem, search for a local or [facility] mental health care center. Public mental health care services may be offered there at a low cost or no cost when you are not able to see a private health care provider. If you are a , contact a local veterans organization or [facility] for more information. If you are taking medicine for PTSD, you may be able to get the genericform, which may be less expensive than brand-name medicine. Some makers of prescription medicines also offer help to patients who cannot afford the medicines that they need. Therapy and support groups Find a support group in your community. Often, groups are available for veterans, trauma victims, and family members or caregivers. Look into volunteer opportunities. Taking part in these can help you feel more connected to your community. Contact a local organization to find out if you are eligible for a service dog. Where to find more information Go to this website to find more information about PTSD, treatment of PTSD, and how to get support: National Center for PTSD: www.ptsd.va.gov Contact a health care provider if: Your symptoms get worse or do not get better. Get help right away if: You have thoughts about hurting yourself or others. If you ever feel like you may hurt yourself or others, or have thoughts about taking your own life, get help right away. You can go to your nearest emergency department or call: Your local emergency services (911 in the [place] A suicide crisis helpline, such as the National Suicide Prevention Lifeline at or 717 in the [place] This is open 24-hours a day. Summary If you are living with PTSD, there are ways to help you recover from it and manage your symptoms. Find supportive environments and people who understand PTSD. Spend time in those places, and maintain contact with those people. Work with your health care team to create a plan for managing PTSD. The plan should include counseling, stress reduction techniques, and healthy lifestyle habits. This information is not intended to replace advice given to you by your health care provider. Make sure you discuss any questions you have with your health care provider. Document Revised: 06/13/2022 Document Reviewed: 08/04/2021 [employer] Patient Education 2021 [employer]. Extracted from:Title: Ambulatory Patient Education Author: SPRING TRINH LCSW Date: 07/08/23 Mental and Behavioral Health Managing Anxiety, Adult After being diagnosed with anxiety, you may be relieved to know why you have felt or behaved a certain way. You may also feel overwhelmed about the treatment ahead and what it will mean for your life. With care and support, you can manage this condition. How to manage lifestyle changes Managing stress and anxiety Stress is your body's reaction to life changes and events, both good and bad. Most stress will last just a few hours, but stress can be ongoing and can lead to more than just stress. Although stress can play a major role in anxiety, it is not the same as anxiety. Stress is usually caused by something external, such as a deadline, test, or competition. Stress normally passes after the triggering event has ended. Anxiety is caused by something internal, such as imagining a terrible outcome or worrying that something will go wrong that will devastate you. Anxiety often does not go away even after the triggering event is over, and it can become long-term (chronic) worry. It is important to understand the differences between stress and anxiety and to manage your stress effectively so that it does not lead to an anxious response. Talk with your health care provider or a counselor to learn more about reducing anxiety and stress. He or she may suggest tension reduction techniques, such as: Music therapy. Spend time creating or listening to music that you enjoy and that inspires you. Mindfulness-based meditation. Practice being aware of your normal breaths while not trying to control your breathing. It can be done while sitting or walking. Centering prayer. This involves focusing on a word, phrase, or sacred image that means something to you and brings you peace. Deep breathing. To do this, expand your stomach and inhale slowly through your nose. Hold your breath for 3 5 seconds. Then exhale slowly, letting your stomach muscles relax. Self-talk. Learn to notice and identify thought patterns that lead to anxiety reactions and change those patterns to thoughts that feel peaceful. Muscle relaxation. Taking time to tense muscles and then relax them. Choose a tension reduction technique that fits your lifestyle and personality. These techniques take time and practice. Set aside 5 1 5 minutes a day to do them. Therapists can offer counseling and training in these techniques. The training to help with anxiety may be covered by some insurance plans. Other things you can do to manage stress and anxiety include: Keeping a stress diary. This can help you learn what triggers your reaction and then learn ways to manage your response. Thinking about how you react to certain situations. You may not be able to control everything, but you can control your response. Making time for activities that help you relax and not feeling guilty about spending your time in this way. Doing visual imagery. This involves imagining or creating mental pictures to help you relax. Practicing yoga. Through yoga poses, you can lower tension and promote relaxation. Medicines Medicines can help ease symptoms. Medicines for anxiety include: Antidepressant medicines. These are usually prescribed for long-term daily control. Anti-anxiety medicines. These may be added in severe cases, especially when panic attacks occur. Medicines will be prescribed by a health care provider. When used together, medicines, psychotherapy, and tension reduction techniques may be the most effective treatment. Relationships Relationships can play a big part in helping you recover. Try to spend more time connecting with trusted friends and family members. Consider going to couples counseling if you have a partner, taking family education classes, or going to family therapy. Therapy can help you and others better understand your condition. How to recognize changes in your anxiety Everyone responds differently to treatment for anxiety. Recovery from anxiety happens when symptoms decrease and stop interfering with your daily activities at home or work. This may mean that you will start to: Have better concentration and focus. Worry will interfere less in your daily thinking. Sleep better. Be less irritable. Have more energy. Have improved memory. It is also important to recognize when your condition is getting worse. Contact your health care provider if your symptoms interfere with home or work and you feel like your condition is not improving. Follow these instructions at home: Activity Exercise. Adults should do the following: Exercise for at least 150 minutes each week. The exercise should increase your heart rate and make you sweat (moderate-intensity exercise). Strengthening exercises at least twice a week. Get the right amount and quality of sleep. Most adults need 7 9 hours of sleep each night. Lifestyle Eat a healthy diet that includes plenty of vegetables, fruits, whole grains, low-fat dairy products, and lean protein. Do not eat a lot of foods that are high in fats, added sugars, or salt (sodium). Make choices that simplify your life. Do not use any products that contain nicotine or tobacco. These products include cigarettes, chewing tobacco, and vaping devices, such as e-cigarettes. If you need help quitting, ask your health care provider. Avoid caffeine, alcohol, and certain dqmn-iyh-tdcjakn cold medicines. These may make you feel worse. Ask your pharmacist which medicines to avoid. General instructions Take snbo-wwn-xjkkijo and prescription medicines only as told by your health care provider. Keep all follow-up visits. This is important. Where to find support You can get help and support from these sources: Self-help groups. Online and community organizations. A trusted spiritual leader. Couples counseling. Family education classes. Family therapy. Where to find more information You may find that joining a support group helps you deal with your anxiety. The following sources can help you locate counselors or support groups near you: Mental Health [place]: www.mentalhealthamerica.net Anxiety and Depression Association of [place] (ADAA): www.adaa.org National [place] on Mental Illness (NOLA): www.nola.org Contact a health care provider if: You have a hard time staying focused or finishing daily tasks. You spend many hours a day feeling worried about everyday life. You become exhausted by worry. You start to have headaches or frequently feel tense. You develop chronic nausea or diarrhea. Get help right away if: You have a racing heart and shortness of breath. You have thoughts of hurting yourself or others. If you ever feel like you may hurt yourself or others, or have thoughts about taking your own life, get help right away. Go to your nearest emergency department or: Call your local emergency services (660 in the [place] Call a suicide crisis helpline, such as the National Suicide Prevention Lifeline at or 030 in the [place] This is open 24 hours a day in the [place] Text the Crisis Text Line at 835866 (in the [place] Summary Taking steps to learn and use tension reduction techniques can help calm you and help prevent triggering an anxiety reaction. When used together, medicines, psychotherapy, and tension reduction techniques may be the most effective treatment. Family, friends, and partners can play a big part in supporting you. This information is not intended to replace advice given to you by your health care provider. Make sure you discuss any questions you have with your health care provider. Document Revised: 06/13/2022 Document Reviewed: 03/11/2022 [employer] Education 2021 [employer]. Post-Traumatic Stress Disorder, Adult Post-traumatic stress disorder (PTSD) is a mental health disorder that can occur after a traumatic event, such as a threat to life, serious injury, or sexual violence. Sometimes, PTSD can occur in people who hear about trauma that occurs to a close family member or friend. PTSD can happen to anyone at any age. What are the causes? The condition may be caused by experiencing a traumatic event. What increases the risk? This condition is more likely to occur in: servicemen and servicewomen. People who are in circumstances where their lives are threatened. People who have been the victim of, or witness to, a traumatic event, such as: Domestic violence. Physical or sexual abuse. Rape. A terrorist act or gun violence. Natural disasters. Accidents involving serious injury. What are the signs or symptoms? PTSD symptoms may start soon after a frightening event or months or years later. Symptoms last at least one month and tend to disrupt relationships, work, and daily activities. Symptoms of PTSD can be grouped into several categories. Intrusive symptoms This is when you re-experience the physical and emotional sensations of the traumatic event through one or more of the following ways: Having upsetting dreams. Feeling fear, horror, intense sadness, or anger in response to a reminder of the trauma. Having unwanted upsetting memories while awake. Having physical reactions triggered by reminders of the trauma, such as increased heart rate, shortness of breath, sweating, and shaking. Having flashbacks, or feeling like you are going through the event again. Avoidance symptoms This is when you avoid anything that reminds you of the trauma. Symptoms may also include: Losing interest or not participating in daily activities. Feeling disconnected from or avoiding other people. Isolating yourself. Increased arousal symptoms You may have physical or emotional reactions triggered by your environment. Symptoms may include: Being easily startled. Behaving in a careless or self-destructive way. Becoming easily irritated. Feeling worried and nervous. Having trouble concentrating. Yelling at or hitting other people or objects. Having trouble sleeping. Negative mood and thoughts Believing that you or others are bad. Feeling fear, horror, anger, sadness, guilt, or shame regularly. Not being able to remember certain parts of the traumatic event. Blaming yourself or others for the trauma. Being unable to experience positive emotions, such as happiness or love. How is this diagnosed? PTSD is diagnosed through an assessment by a mental health professional. You will be asked questions about your symptoms. How is this treated? Treatment for this condition may include any of the following or a combination: Taking medicines to reduce PTSD symptoms. Having counseling with a mental health professional or therapist who is experienced in treating PTSD. Doing eye movement desensitization and reprocessing therapy (EMDR). This type of therapy occurs with a specialized therapist. If you have other mental health concerns, these conditions will also be treated. Follow these instructions at home: Lifestyle Find a support group in your community. Groups are often available for veterans, trauma victims, and family members or caregivers. Try to get 7 9 hours of sleep each night. To help with sleep: Keep your bedroom cool and dark. Do not eat a heavy meal within 1 hour of bedtime. Do not drink alcohol or caffeinated drinks before bed. Avoid screen time, such as television, computers, tablets, or mobile phones, before bed. Do not use illegal drugs. Contact a local organization to find out if you are eligible for a service dog. Activity Exercise regularly. Try to do at least 30 minutes of physical activity most days of the week. Practice self-calming through: Breathing exercises. Meditation. Yoga. Listening to quiet music. Do not isolate yourself. Make connections with other people. Consider volunteering. Volunteering can help you feel more connected. Eating and drinking Do not drink alcohol if: Your health care provider tells you not to drink. You are , may be , or are planning to become . If you drink alcohol: Limit how much you use to: 0 1 drink a day for women. 0 2 drinks a day for men. Be aware of how much alcohol is in your drink. In the [place] one drink equals one 12 oz bottle of beer (355 mL), one 5 oz glass of wine (148 mL), or one 1 oz glass of hard liquor (44 mL). General instructions Take steps to help yourself feel safer at home, such as by installing a security system. Work with a health care provider or therapist to help manage your symptoms. Take [id number] and prescription medicines as told by your health care provider. Let others know that you have PTSD and the things that may trigger symptoms. This can protect you and help them understand you better. If your PTSD is affecting your marriage or family, seek help from a family therapist. Make sure to let all of your health care providers know you have PTSD. This is especially important if you are having surgery or need to be admitted to the hospital. Keep all follow-up visits as told by your health care provider. This is important. Contact a health care provider if: Your symptoms do not get better. You are feeling overwhelmed by your symptoms. Get help right away if: You have thoughts of hurting yourself or others. If you ever feel like you may hurt yourself or others, or have thoughts about taking your own life, get help right away. You can go to your nearest emergency department or call: Your local emergency services (911 in the [place] A suicide crisis helpline, such as the National Suicide Prevention Lifeline at or 996 in the [place] This is open 24 hours a day. Summary Post-traumatic stress disorder (PTSD) is a mental health disorder that can occur after a traumatic event. Treatment for PTSD may include medicines, counseling, eye movement desensitization and reprocessing therapy (EMDR), or a combination of therapies. Find a support group in your community. Get help right away if you have thoughts of hurting yourself or others. This information is not intended to replace advice given to you by your health care provider. Make sure you discuss any questions you have with your health care provider. Document Revised: 06/13/2022 Document Reviewed: 01/28/2020 [employer] Patient Education 2021 [employer] Managing Post-Traumatic Stress Disorder If you have been diagnosed with post-traumatic stress disorder (PTSD), you may be relieved that you now know why you have felt or behaved a certain way. Still, you may feel overwhelmed about the treatment ahead. You may also wonder how to get the support you need and how to deal with the condition day-to-day. If you are living with PTSD, there are ways to help you recover from it and manage your symptoms. How to manage lifestyle changes Managing stress Stress is your body's reaction to life changes and events, both good and bad. Stress can make PTSD worse. Take the following steps to manage stress: Talk with your health care provider or a counselor if you would like to learn more about techniques to reduce your stress. He or she may suggest some stress reduction techniques such as: Muscle relaxation exercises. Regular exercise. Meditation, yoga, or other mind b guille exercises. Breathing exercises. Listening to quiet music. Spending time outside. Maintain a healthy lifestyle. Eat a healthy diet, exercise regularly, get plenty of sleep, and take time to relax. Spend time with others. Talk with them about how you are feeling and what kind of support you need. Try not to isolate yourself, even though you may feel like doing that. Isolating yourself can delay your recovery. Do activities and hobbies that you enjoy. Pace yourself when doing stressful things. Take breaks, and reward yourself when you finish. Make sure that you do not overload your schedule. Medicines Your health care provider may suggest certain medicines if he or she feels that they will help to improve your condition. Medicines for depression (antidepressants) or severe loss of contact with reality (antipsychotics) may be used to treat PTSD. Avoid using alcohol and other substances that may prevent your medicines from working properly. It is also important to: Talk with your pharmacist or health care provider about all medicines that you take, their possible side effects, and which medicines are safe to take together. Make it your goal to take part in all treatment decisions (shared decision-making). Ask about possible side effects of medicines that your health care provider recommends, and tell him or her how you feel about having those side effects. It is best if shared decision-making with your health care provider is part of your total treatment plan. If your health care provider prescribes a medicine, you may not notice the full benefits of it for 4 8 weeks. Most people who are treated for PTSD need to take medicine for at least 6 1 2 months before they feel better. If you are taking medicines as part of your treatment, do not stop taking medicines before you ask your health care provider if it is safe to stop. You may need to have the medicine slowly decreased (tapered) over time to lower the risk of harmful side effects. Relationships Many people who have PTSD have difficulty trusting others. Make an effort to: Take risks and develop trust with close friends and family members. Developing trust in others can help you feel safe and connect you with emotional support. Be open and honest about your feelings. Have fun and relax in safe spaces, such as with friends and family. Think about going to couples counseling, family education classes, or family therapy. Your loved ones may not always know how to be supportive. Therapy can be helpful for everyone. How to recognize changes in your condition Be aware of your symptoms and how often you have them. The following symptoms mean that you need to seek help for your PTSD: You feel suspicious and angry. You have repeated flashbacks. You avoid going out or being with others. You have an increasing number of fights with close friends or family members, such as your spouse. You have thoughts about hurting yourself or others. You cannot get relief from feelings of depression or anxiety. Follow these instructions at home: Lifestyle Exercise regularly. Try to do 30 or more minutes of physical activity on most days of the week. Try to get 7 9 hours of sleep each night. To help with sleep: Keep your bedroom cool and dark. Avoid screen time before bedtime. This means avoiding use of your TV, computer, tablet, and cell phone. Practice self-soothing skills and use them daily. Try to have fun and seek humor in your life. Eating and drinking Do not eat a heavy meal during the hour before you go to bed. Do not drink alcohol or caffeinated drinks before bed. Avoid using alcohol or drugs. General instructions If your PTSD is affecting your marriage or family, seek help from a family therapist. Remind yourself that recovering from the trauma is a process and takes time. Take [id number] and prescription medicines only as told by your health care provider. Make sure to let all of your health care providers know that you have PTSD. This is especially important if you are having surgery or need to be admitted to the hospital. Keep all follow-up visits as told by your health care providers. This is important. Where to find support Talking to others Explain that PTSD is a mental health problem. It is something that a person can develop after experiencing or seeing a life-threatening event. Tell them that PTSD makes you feel stress like you did during the event. Talk to your loved ones about the symptoms you have. Also tell them what things or situations can cause symptoms to start (are triggers for you). Assure your loved ones that there are treatments to help PTSD. Discuss possibly seeking family therapy or couples therapy. If you are worried or fearful about seeking treatment, ask for support. Keep daily contact with at least one trusted friend or family member. Finances Not all insurance plans cover mental health care, so it is important to check with your insurance carrier. If paying for co-pays or counseling services is a problem, search for a local or [facility] mental health care center. Public mental health care services may be offered there at a low cost or no cost when you are not able to see a private health care provider. If you are a , contact a local veterans organization or [facility] for more information. If you are taking medicine for PTSD, you may be able to get the genericform, which may be less expensive than brand-name medicine. Some makers of prescription medicines also offer help to patients who cannot afford the medicines that they need. Therapy and support groups Find a support group in your community. Often, groups are available for veterans, trauma victims, and family members or caregivers. Look into volunteer opportunities. Taking part in these can help you feel more connected to your community. Contact a local organization to find out if you are eligible for a service dog. Where to find more information Go to this website to find more information about PTSD, treatment of PTSD, and how to get support: National Center for PTSD: www.ptsd.[place].gov Contact a health care provider if: Your symptoms get worse or do not get better. Get help right away if: You have thoughts about hurting yourself or others. If you ever feel like you may hurt yourself or others, or have thoughts about taking your own life, get help right away. You can go to your nearest emergency department or call: Your local emergency services (911 in the [place] A suicide crisis helpline, such as the National Suicide Prevention Lifeline at or 533 in the [place] This is open 24-hours a day. Summary If you are living with PTSD, there are ways to help you recover from it and manage your symptoms. Find supportive environments and people who understand PTSD. Spend time in those places, and maintain contact with those people. Work with your health care team to create a plan for managing PTSD. The plan should include counseling, stress reduction techniques, and healthy lifestyle habits. This information is not intended to replace advice given to you by your health care provider. Make sure you discuss any questions you have with your health care provider. Document Revised: 06/13/2022 Document Reviewed: 08/04/2021 [employer] Patient Education 2021 Work4. 03/08/2025 [id number] Functional Status Combined list of recent functional and cognitive assessments recorded at [employer] (VA[employer]VA Functional [place] Measurement (FIM) Scale: 1 = Total Assistance (Subject = 0% +), 2 = Maximal Assistance (Subject = 25% +), 3 = Moderate Assistance (Subject = 50% +), 4 = Minimal Assistance (Subject = 75% +), 5 = Supervision, 6 = Modified [place] (Device), 7 = Complete [place] (Timely, Safely). Assessment Date/Time Source Assessment Type Assessment Skill Assessment Score Assessment Details No data available for this section
--- OUTSIDE RECORDS SUMMARY | 2025-03-08 00:53 | XMS_ITS | Data Portability ---
Author Organization [place] - [facility] Address [address] [place] [address] Assessment No assessment recorded. Plan of Treatment Reminders Order Date Submit Date Provider Last Modified By Organization Details Last Modified Time Details Appointments None recorded. Lab None recorded. Referral None recorded. Procedures None recorded. Surgeries None recorded. Imaging None recorded. Medication Orders amoxicillin 875 mg-potassiu m clavulanate 125 mg tablet 2022 023 [facility]armacy #[id number], [address] [place], [address], 3 09:10:45 fluconazole 150 mg tablet 2022 023 [facility]armacy #[id number], [address] [place], [address], 3 09:10:45 prednisone 20 mg tablet 2022 023 [facility]armacy #[id number], [address] [place], [address], 3 08:14:17 Patient TargetsNo targets recorded. Patient Instructions Encounter Date Encounter Id Patient Instructions Last Modified By Organization Details Last Modified Time 02/19/2023 [id number] program - program one pager [email or web address] Not available 02/19/2023 12:36:45 Supportive care Prednisone as prescribed Use your rescue inhaler 2 puffs every 4-6 hours as needed Continue your other medicines as prescribed Cool-mist humidifier nightly Return to the office if no improvement is noted within 24 to 48 hours! Return to the office or go to the ER [facility] if symptoms worsen!! [email or web address] Not available 02/19/2023 12:37:22 02/26/2023 [id number] Acute Sinusitis: Care Instructions [email or web address] Not available 02/26/2023 09:10:43 [id number] program - program one pager [email or web address] Not available 03/01/2023 08:13:54 Reason for Referral None Reported. Procedures Surgical History Date Name Laterality Status Provider Name and Address Organization Details Recorded Time 12/02/19 03 Partial hysterectomy completed [facility] 02/19/2023 12:01:28 Imaging Results None recorded. Procedure Notes None recorded. Medical Equipment None Reported. Allergies Allergen ID Allergen Name Allergen Category Reaction Reaction Severity Criticality Documentation Date Start Date Code Code System Note Provider Name and Address Organization Details Recorded Time 073744 Substance with sulfonami de structure and antibacte rial mechanism of action (substanc e) medicatio n Not available Not available Not available 02/19/2023 10222 8003 SNOMED stoma ch bleed ing Not Available Not Available Not Available Medications Name Sig Start Date Stop Date Status Note LastModified by Organization Details LastModified Time cholesterol 2%, lovastatin 2% topical gel APPLY TO dsap LESIONS TWICE DAILY for 2 months 02/19 completed Not Available Not Available Not Available cyclobenzapr ine 10 mg tablet active Not Available Not Available Not Available cetirizine 10 mg tablet active Not Available Not Available Not Available ibuprofen 800 mg tablet active Not Available Not Available Not Available fluconazole 150 mg tablet TAKE 1 TABLET BY MOUTH ONCE NEEDED, MAY REPEAT IN 72 HOURS FOR SECOND DOSE active Not Available Not Available No t Available prednisone 20 mg tablet TAKE 3 TABLETS BY MOUTH ONCE DAILY X 5 DAYS. active Not Available Not Available No t Available atenolol 25 mg tablet active Not Available Not Available No t Available phentermine 37.5 mg tablet 02/19 completed Not Available Not Available Not Available paroxetine 30 mg tablet active Not Available Not Available Not Available paroxetine 20 mg tablet 02/19 completed Not Available Not Available Not Available buspirone 10 mg tablet 02/19 completed Not Available Not Available Not Available montelukast 10 mg tablet active Not Available Not Available Not Available epinephrine 0.3 mg/0.3 mL injection, auto-injecto r active Not Available Not Available Not Available ketoconazole 2 % topical cream active Not Available Not Available Not Available ondansetron 4 mg disintegrati ng tablet active Not Available Not Available No t Available naproxen 500 mg tablet 02/19 completed Not Available Not Available Not Available amoxicillin 875 mg-potassium clavulanate 125 mg tablet TAKE 1 TABLET BY MOUTH EVERY 12 HOURS FOR 10 DAYS active Not Available Not Available No t Available ProAir HFA 90 mcg/actuatio n aerosol inhaler active Not Available Not Available Not Available Vitals Date Recorded Body weight Body mass index (BMI) Body height Respiratory rate Body temperature Oxygen saturation Oxygen saturation in Arterial blood by Pulse oximetry Heart rate Pain severity - 0-10 verbal numeric rating [Score] - Reported Systolic blood pressure Diastolic blood pressure Provider Name and Address Organization Details Last Updated DateTime 3 698515. 28 g 35.2 kg/m2 170.18 cm 20 /min 98.1 [degF] 95 % 95 % 91 /min 0 122 mm[Hg] 76 mm[Hg] Belen Benitez LPN [facility] 3 11:54:52 Date Recorded Body height Body mass index (BMI) Body weight Respiratory rate Oxygen saturation Oxygen saturation in Arterial blood by Pulse oximetry Body temperature Heart rate Systolic blood pressure Diastolic blood pressure Provider Name and Address Organization Details Last Updated DateTime 3 170.18 cm 36 kg/m2 783129. 25 g 18 /min 97 % 97 % 96.9 [degF] 97 /min 118 mm[Hg] 74 mm[Hg] Lillie Acharya LPN [facility] 3 08:21:46 Social History Question Answer Notes LastModified by Organizat ion Details LastModified Time Tobacco Smoking Status Former Smoker Belen Benitez LPN [place] - [facility] 02/19/2023 11:58:08 What Is Your Level Of Alcohol Consumption? Occasional Information not available 02/19/2023 Are You Blind Or Do You Have Difficulty Seeing? No Information n ot available 02/19/2023 What Is Your Level Of Caffeine Consumption? Moderate Information not available 02/19/2023 Are You Deaf Or Do You Have Serious Difficulty Hearing? No Information not available 02/19/2023 When Did You Quit Smoking? 16+yearssincel astcigarette Information not available 02/19/2023 SDoH Date 02/19/2023 API-253 Information no t available 02/19/2023 Homemade Tattoos? No Informa tion not available 02/19/2023 A Social History Update Completed 02/19/2023 Information not available 02/19/2023 Are You Diabetic? No Informa tion not available 02/19/2023 Enough Money To Cover Living Costs (z59.9) Not A Problem API-253 Information not available 02/19/2023 Housing (z59.819) Not A Problem API-253 Info rmation not available 02/19/2023 Transportation (z59.82) Not A Problem API-253 Information not available 02/19/2023 Food (z59.41) Not A Problem API-253 Informat ion not available 02/19/2023 Utilities (z59.9) Not A Problem API-253 Info rmation not available 02/19/2023 Medicine Or Any Health Care (z75.9) Not A Problem API-253 Information not available 02/19/2023 Have You Seen A Dentist In The Past 12 Months? No Information not available 02/19/2023 What Was The Date Of Your Most Recent Tobacco Screening? 02/19/2023 Information not available 02/19/2023 Do You Use Any Illicit Or Recreational Drugs? No Information not available 02/19/2023 Do You Or Have You Ever Used Any Other Forms Of Tobacco Or Nicotine? No Information not available 02/19/2023 Sex: Unknown Functional Status None recorded. Mental Status None recorded. Family History Nothing Reported. Medical History Condition Response Coronary Artery Disease N Gout N Recurrent Ear Infections N Stomach or Digestive Problems N Kidney Stones N Blood Diseases N Hyperthyroidism N Medication adverse effects N (PM) Board of Pharmacy Discrepancy N COPD N Depression N Hypothyroidism N Pneumonia N Developmental or Behavioral Disorders N Anxiety Disorder N Vision or Eye Problems N Arthritis N Serious Illness or Injuries N Congenital Anomalies N Cancer N IBS N Stroke N Blood clot N Bladder or Kidney Problems N Hospital Admission other than N High Cholesterol N Liver Disease N Fibromyalgia N Crohn's N Kidney Disease N Heart Problems N Recurrent Urinary Tract Infections N Colitis N Ear or Hearing Problems N Eczema/Hives/other skin conditions N Migraines N ADD or ADHD N Skin Problems N Anemia N Constipation N Broken Bones N Diabetes N Bedwetting N Seizures/Epilepsy N Learning Disability N Lung Problems N Tuberculosis N Muscle/Joint/Bone Problems N Diverticulitis N Asthma Y Allergies N Substance Abuse N Ulcerative Colitis N GERD/Reflux N Heart Disease N Pulmonary Embolism N Hypertension N Chicken Pox N Osteoporosis N COVID N Gynecological History Statement/Question Response Menses Monthly N LMP Obstetrics History GPAL:G 9 P 0 4 5 0 Type Value Spontaneous 5 Premature 4 Total 9 Past Encounters Encounter ID Performer Location Encounter Start Date Encounter Closed Date Diagnosis/Indication Diagnosis SNOMED-CT Code Diagnosis ICD10 Code Diagnosis Note [id number] Kilo Pizarro PA-C [facility] [address] [place] [address] 02/19/2023 11:40:08 02/19/2023 12:15:24 Body mass index 30+ - obesity 710621067 Z68.35 E66.8 Asthmatic bronchitis 405 955392 J45.909 --See discussion . [id number] ANGELA Schneider [facility] [address] [place] [address] 02/26/2023 08:09:03 02/26/2023 09:12:27 Body mass index 30+ - obesity 148647961 Z68.36 E66.8 Acute sinusitis 58977241 J01.90 Prescribed Augmentin. Discussed OTC Flonase which has at home. Return if no improvemen t in the next 4 to 5 days. Health Concerns Section Related Observation LastModified by Organization Detai ls LastModified Time None Recorded Concern Status LastModified by Organization Details LastModified Time None Recorded Advance Directives Directive None Recorded Payers Encounter Date Sequence Insurance Name Policy Number Policy Varma Covered Member ID Varma Member ID Guarantor Name 02/19/2023 1 EAST - DOS PRIOR TO 2024 - [employer] () Renatakayla Ninak [id number] Renatakayla Rae 02/26/2023 1 [place] - DOS PRIOR TO 2024 - [employer] () Renatakayla Ninak [id number] Renatakayla Rae Notes Date Note Type Note Provider Name and Address Organization Details Recorded Time 02/19/2023 text/html BMIReported [email or web address].Notes:BMI in the Obese range. 5210 handout reviewed with patient. Patient presents to the office complaining of cough, congestion, wheezing, and shortness of breath. She states that she has been symptomatic for the past 3 to 4 days. She has a history of asthma and has been using her rescue inhaler 2 puffs every 4-6 hours without relief. She also takes Singulair and Zyrtec. She states that typically when she gets like this she has to take prednisone. She denies fever, chills, or chest pain. She no longer has menstrual cycles due to a past history of hysterectomy. She denies any history of diabetes. Kilo Pizarro PA-C [address] [place], [address], [facility] 02/19/2023 12:37:45 02/26/2023 text/html BMIReported [email or web address].Notes:BMI in the Obese range. 5210 handout reviewed with patient. 52-year-old female presents with nasal congestion and sinus pain x4 days. Associated symptoms include sore throat and cough. She was seen 1 week ago for an asthma attack and prescribed prednisone. She states her breathing is back to baseline. She has been taking [id number] nasal decongestants without relief. She was unable to sleep last night secondary to coughing. She denies fever, or any other complaints or concerns ANGELA Schneider [address] [place], [address], [facility] - [facility] 02/26/2023 09:13:00 OBGyn Episode No OBEpisode recorded.
--- OUTSIDE RECORDS SUMMARY | 2025-03-08 00:53 | XMS_ITS | Continuity of Care Document ---
Author Organization [facility] Address [address] [place] [address] Phone Care Team Providers Care Guzzler Builder Name Role Phone Hunt OD, Vinayak Unavailable Unavailable Procedures Procedure Date Eye Exam & Treatment Refraction CL Replacement - Vistakon Disp W/BW Soft Tax - Medical No Charge Contact Lens Check CL Replacement - Vistakon Disp W/BW Soft Tax - Medical No Charge Contact Lens Check Eye Exam, New Patient Advance Directives Directive Yes / No Effective Date File Name No Information Encounters Encounter Description Practice Location Reason(s) For Visit Diagnoses Date Provider Providers Copied on Encounter [facility], [address] [place] [address] [address], [place], [place], [id number], tel:[phone] [facility] No Information 8-200 8 Hunt OD Vinayak. [address] , [address], [place], [place], [facility], [place]. tel:[phone] [facility], [address] [place] [address] [address], [place], [place], [id number], [place] tel:[phone] [facility] No Information 0-200 7 Hunt OD Vinayak. [address] [facility] [address], [place], [address], . tel:[phone] [facility], [address] [place] [address] [address], [place], [place], [id number], [place] tel:[phone] [facility] No Information April-0 3-200 7 Hunt OD Vinayak. [address] , [address], [place], [address], [place]. tel:[phone] Family History Family Member Type Diagnosis Age At Onset No Information Payers Payer name Insurance type Covered alliance party ID Authoriza tion(s) No Information Social History Type Description Quantity Date Captured Comments Sex Female Smoking Status No Information Chief Complaint And Reason For Visit No Information Reason For Referral Reason For Referral No Information History Of Present Illness Encounter Date Complaint History Of Prese nt Illness No Information Functional Status Date Functional Assessmen t No Information Instructions Date Instruction Additional Infor mation No Information Assessments Type Assessment Date No Information Patient Care Teams Name Effective Dates (start - stop) Status Members No Information
--- OUTSIDE RECORDS SUMMARY | 2025-03-08 00:53 | XMS_ITS | Encounter Summary ---
Author Organization [facility] Address [facility] [place] [address] Care Team Providers Care Assistant Family Teacher Name Role Phone Mike Kuo MD Primary Care Provider [phone] Rod Joaquin MD Unavailable Encounter Details Date Type Department Care Team (Late st Contact Info) Description [facility] [address] [place] [address] Samira Natarajan, DO 3 [facility] [address] [place] [id number] Social History Tobacco Use Types Packs/Day Years Used Date Smoking Tobacco: Former Cigarettes Q uit: 2008 Smokeless Tobacco: Never Alcohol Use Standard Drinks/Week Comments Yes 0 (1 standard drink = 0.6 oz pur e alcohol) social Comments Unknown Sex and Gender Information Value Date Recorded Sex Assigned at Not on file Legal Sex Female 11:54 PM CDT Gender Identity Not on file Sexual Orientation Not on file Occupation Industry Job Start Date Job End Date Not on file Not on file Not on file Not on file documented as of this encounter Plan of Treatment Not on file documented as of this encounter Visit Diagnoses Not on filedocumented in this encounter Care Teams Assistant Family Teacher Relationship Specialty Start Date End Date Mike Kuo MD [address] [place] [address] PCP - General INTERNAL MEDICINE 12/18/16 Rod Joaquin MD [address] [place] [address] [facility] Social Worker CARDIOVASCULAR DISEASE 12/18/16 documented as of this encounter
--- OUTSIDE RECORDS SUMMARY | 2025-03-08 00:53 | XMS_ITS | Clinical Summary ---
Author Organization [facility] Address [address] [place] [address] Care Team Providers Care Construction Specialist Name Role Phone Unavailable Primary Care Provider Unavailabl e Source Comments [facility],non-owned Affiliates and Associated Physician Practices is amultiple site organization consisting of ambulatory clinics and hospital sitesin [place], [place], [place] and [place]. This disclosure is being madepursuant to the Care Everywhere program and may not contain all information available regarding this patient. Last updated 18.[facility] Social History Tobacco Use Types Packs/Day Years Used Date Smoking Tobacco: Never Assessed Sex and Gender Information Value Date Recorded Sex Assigned at Not on file Gender Identity Not on file Sexual Orientation Not on file Plan of Treatment Health Maintenance Due Date Last Done Comments COLOGUARD (AGES 45-75) - COL ON CA SCREENING 1972 COLON MONITORING 1972 COLONOSCOPY - COLON CA SCREENING 1972 CT COLONOGRAPHY - COLON CA SCREENING 1972 Colorectal Cancer Screening 1972 FIT - COLON CA SCREENING 1972 FLEX SIG - COLON CA SCREENING 1972 LIPID TESTING 1972 MAMMOGRAM 1972 PAP SMEAR 1972 HIV SCREENING 1987 HEPATITIS C SCREENING 07/10/1990 DTAP/TDAP/TD VACCINES (1 - Tdap) 1991 HEPATITIS B VACCINE (1 of 3 - 19+ 3-dose series) 1991 PNEUMOCOCCAL VACCINE 50+ (1 of 1 - PCV) 2022 ZOSTER VACCINE (1 of 2) 2022 COVID-19 VACCINE (1 - 2023-2 5 season) 2024 DEPRESSION SCREENING 12/02/2024 INFLUENZA VACCINE (Season Ended) 2025 HIB VACCINE Aged Out No longer eligi ble based on patient's age to complete this topic HPV VACCINE Aged Out No longer eligi ble based on patient's age to complete this topic MENINGOCOCCAL (Group B) VACC INE SHARED DECISION-MAKING Aged Out No longer eligibl e based on patient's age to complete this topic MENINGOCOCCAL GROUPS A/C/Y/W VACCINE Aged Out No longer eligible b ased on patient's age to complete this topic PNEUMOCOCCAL VACCINE Aged Out No long er eligible based on patient's age to complete this topic
--- OUTSIDE RECORDS SUMMARY | 2025-03-08 00:53 | XMS_ITS | Data Portability ---
Author Organization [place] - [facility] OFFICE Address [address] [place] [address] Care Team Providers Care Geological Engineer Name Role Phone SUJATHA TIMGRACIA MONTES Primary Care Provider Assessment No assessment recorded. Plan of Treatment Reminders Order Date Submit Date Provider Last Modified By Organization Details Last Modified Time Details Appointments ESTABLISH ED PATIENT DETAILED 2024 10:30A M Pratik May i, MD Not available Not available Not available Lab None recorded. Referral None recorded. Procedures None recorded. Surgeries None recorded. Imaging electroca rdiogram 2023 024 Not available 10/02/2024 06:59:23 electroca rdiogram 2023 024 Not available 09/03/2024 15:30:28 Medication Orders atenolol 25 mg tablet 2023 [facility] #[id number], [address] [place], [place], [phone], 09/17/2024 19:20:39 magnesium 400 mg (as magnesium oxide) tablet 2023 [facility] #[id number], [address], [place], [phone], 09/17/2024 19:20:38 Patient TargetsNo targets recorded. Patient Instructions Encounter Date Encounter Id Patient Instructions Last Modified By Organization Details Last Modified Time 08/18/2024 [id number] Weight loss 20 pounds Exercise advised Low cholesterol diet advised Low sodium diet advised. [email or web address] Not available 08/18/2024 19:24:24 Reason for Referral None Reported. Results Created Date Observation Date Name Description Value Unit Range Abnormal Flag Note LastModifiedBy Organization Detail LastModifiedTime 08/19/2008/18/2024 shivani valentin am No observ ation record ed. [email or web address] Not Available 2023 09:18:50 09/09/2009/01/2024 exerc isdunia arringtons s echoc ardio gram No observ ation record ed. [email or web address] Not Available 2023 12:05:12 09/18/2009/06/2024 event monit or No observ ation record ed. [email or web address] Not Available 2023 10:11:05 Result Notes None recorded. Problems Name Problem SNOMED Code Status Onset Date Resolution Date Notes Provider Name and Address Organization Details Recorded Time Palpitations 87624665 Active 2023 [place], [place] - [facility] 4 02:26:51 Supraventricul ar tachycardia 3782018 Active 2023 [place], [place] - [facility] 4 02:26:57 Atypical chest pain 590393057 Active 2023 [place], [place] - [facility] 4 02:27:08 Problem Notes None recorded. Procedures Surgical History None recorded. Imaging Results Imaging Date Name Status LastModified by Organization Details LastModified Time 08/18/2024 electrocardiogram completed Informa tion not available 08/19/2024 09:18:50 09/01/2024 exercise stress echocardiogram completed Information not available 09/09/2024 12:05:12 09/06/2024 event monitor completed Information not available 09/18/2024 10:11:05 Procedure Notes None recorded. Medical Equipment None Reported. Allergies No known drug allergies Medications Name Sig Start Date Stop Date Status Note LastModified by Organization Details LastModified Time cholesterol 2%, lovastatin 2% topical gel APPLY TO dsap LESIONS TWICE DAILY for 2 months 09/15 completed Not Available Not Available Not Available trazodone 50 mg tablet TAKE 1 TO 2 TABLETS BY MOUTH EVERY DAY AT BEDTIME NEEDED FOR SLEEP active Not Available Not Available No t Available cetirizine 10 mg tablet TAKE ONE TWICE DAILY NEEDED active Not Available Not Available No t Available hydrocodone 5 mg-acetamin ophen 325 mg tablet TAKE 1 TABLET BY MOUTH EVERY 6 HOURS 09/15 completed Not Available Not Available Not Available prazosin 1 mg capsule TAKE 1 CAPSULE BY MOUTH EVERY DAY AT BEDTIME active Not Available Not Available No t Available atenolol 25 mg tablet TAKE 1 TABLET BY MOUTH THREE TIMES DAILY active Not Available Not Available No t Available meloxicam 7.5 mg tablet TAKE 1 TABLET BY MOUTH DAILY active Not Available Not Available No t Available hydrocodone 7.5 mg-acetamin ophen 325 mg tablet TAKE 1 TABLET BY MOUTH EVERY 6 HOURS active Not Available Not Available No t Available montelukast 10 mg tablet TAKE 1 TABLET BY MOUTH DAILY active Not Available Not Available No t Available epinephrine 0.3 mg/0.3 mL injection, auto-inject or INJECT 1 PEN IN THE MUSCLE ONE TIME NEEDED FOR ALLERGIC EMERGENCY . SEEK MEDICAL ATTENTION . MAY REPEAT IN 5 MINUTES WITH NEW PEN NEEDED active Not Available Not Available No t Available albuterol sulfate HFA 90 mcg/actuati on aerosol inhaler INHALE 1 TO 2 PUFFS BY MOUTH EVERY 4-6 HOURS NEEDED FOR SHORTNESS OF BREATH active Not Available Not Available No t Available hydrocortis one 2.5 % topical ointment APPLY TOPICALLY TO FACE TWICE DAILY FOR 2 WEEKS active Not Available Not Available No t Available hydroxyzine pamoate 25 mg capsule TAKE 1 CAPSULE BY MOUTH FOUR TIMES DAILY NEEDED FOR ANXIETY 12/05 completed Not Available Not Available Not Available aripiprazol e 5 mg tablet TAKE 1 TABLET BY MOUTH DAILY active Not Available Not Available No t Available duloxetine 60 mg capsule,del ayed release TAKE 1 CAPSULE BY MOUTH DAILY. DO NOT CRUSH OR CHEW active Not Available Not Available No t Available naloxone 4 mg/actuatio n nasal spray CALL 911. SPR CONTENTS OF ONE SPRAYER (0.1ML) INTO ONE NOSTRIL. REPEAT IN 2-3 MIN IF SYMPTOMS OF OPIOID EMERGENCY PERSIST, ALTERNATE NOSTRILS active Not Available Not Available No t Available magnesium 400 mg (as magnesium oxide) tablet Take 1 tablet every day by oral route before meal(s). 2023 active Not Available Not Available Not Avai lable Vitals Date Recorded Body height Body mass index (BMI) Body weight Heart rate Respiratory rate Oxygen saturation Oxygen saturation in Arterial blood by Pulse oximetry Systolic blood pressure Diastolic blood pressure Systolic blood pressure Diastolic blood pressure Provider Name and Address Organization Details Last Updated DateTime 4 170.18 cm 37 kg/m2 527202. 8 g 88 /min 16 /min 94 % 94 % 154 mm[Hg] 88 mm[Hg] 128 mm[Hg] 70 mm[Hg] Lanie [facility] 4 18:58:07 Date Recorded Body height Body mass index (BMI) Body weight Heart rate Oxygen saturation Oxygen saturation in Arterial blood by Pulse oximetry Systolic blood pressure Diastolic blood pressure Provider Name and Address Organization Details Last Updated DateTime 4 170.18 cm 36.9 kg/m2 344609. 44 g 67 /min 98 % 98 % 118 mm[Hg] 80 mm[Hg] Cathryn Harris [facility] 4 18:42:27 Date Recorded Body height Body mass index (BMI) Body weight Heart rate Oxygen saturation Oxygen saturation in Arterial blood by Pulse oximetry Systolic blood pressure Diastolic blood pressure Provider Name and Address Organization Details Last Updated DateTime 5 170.18 cm 37.3 kg/m2 709764. 98 g 66 /min 95 % 95 % 122 mm[Hg] 80 mm[Hg] [facility] 5 11:08:50 Social History None recorded. Functional Status None recorded. Mental Status None recorded. Family History Nothing Reported. Medical History No medical history recorded. Gynecological HistoryNo gynecological history recorded. Obstetrics History GPAL:G 0 P 0 0 0 0 Past Encounters Encounter ID Performer Location Encounter Start Date Encounter Closed Date Diagnosis/Indication Diagnosis SNOMED-CT Code Diagnosis ICD10 Code Diagnosis Note [id number] Pratik Alejandre MD [place] [facility] [place] [address] 08/18/2024 17:51:20 08/18/2024 19:46:21 Palpitations 71512120 R00.2 7 days event monitor Supraventr icular tachycardia 9438117 I47.10 s/p ablation 3 times in the past, 7 days event monitor Atypical chest pain 1025 36411 R07.89 Will get exercise stress echo, to look for any new ischemia [id number] Pratik Alejandre MD [facility] [address] [place] [address] 09/17/2024 18:31:54 09/17/2024 19:24:39 Palpitations 04696177 R00.2 7 days event monitor, with NVT Supraventr icular tachycardia 0713607 I47.10 s/p ablation 3 times in the past, 7 days event monitor Atypical chest pain 1025 23983 R07.89 Will get exercise stress echo, to look for any new ischemia [id number] Pratik Alejandre MD [facility] [address] [place] [address] 12/05/2024 10:33:10 12/05/2024 11:28:36 Palpitations 68682481 R00.2 7 days event monitor, with NSVT Supraventr icular tachycardia 7213220 I47.10 s/p ablation 3 times in the past, 7 days event monitor Health Concerns Section Related Observation LastModified by Organization Detai ls LastModified Time None Recorded Concern Status LastModified by Organization Details LastModified Time None Recorded Advance Directives Directive None Recorded Payers Encounter Date Sequence Insurance Name Policy Number Policy Varma Covered Member ID Varma Member ID Guarantor Name 08/18/2024 1 [employer] () Renata Junk [id number] Renata Junk 09/17/2024 1 [employer] () Renata Junk [id number] Renata Junk 12/05/2024 1 [employer] () Renata Junk [id number] [facility] Notes Date Note Type Note Provider Name and Address Organization Details Recorded Time 08/18/2024 text/html 08/18/24CC: PalpPuma HAWLEY is a 54 years-old Female with h/o SVT Hx of 3x ablation was referred for cardiac evaluation due to Elevated HR after minimal execution such after [address] Today reports:Has occasional chest pain.Denies shortness of breath at rest. Has mild dyspnea on exertion.No orthopnea. No PNDs.Has heart palpitations.Denies dizziness. Denies syncope or near syncope.No ankle or leg edema.No major bleeding events.No reported side effects from medications. Taking medications as prescribed with no missed doses.Denies snoring, daytime somnolence and AM headache.*Last LDL was done on .Pt takes. Pratik Alejandre MD [address] [place], [address], [facility] 08/18/2024 19:28:02 09/17/2024 text/html 09/17/24CC : Car diac follow Julio César HAWLEY is a 54 years-old Female with h/o SVT Hx of 3x ablation is here for 1 month follow up with stress test results. She was last seen in the clinic on 08/18/24, since then she Had Negative stress echo on 09/01/24 with Mild exercise impairment. Had an event monitor with NSVTShe denies ER visits and hospitalizations since she was last seen. Today reports: CC: pt states no concerns at this timeDenies chest pain.Denies shortness of breath at rest. Has mild dyspnea on exertion.No orthopnea. No PNDs.pt admits occasional heart palpitations.Denies dizziness. Denies syncope or near syncope.No ankle or leg edema.No major bleeding events.No reported side effects from medications. Taking medications as prescribed with no missed doses.Denies snoring, daytime somnolence and AM headache.*Pt dose not have any lipid labs previously. dose not takes any statins. *Had Negative stress echo on 09/01/24 with Mild exercise impairment. Pratik Alejandre MD [address] [place], [address], [facility] 09/17/2024 19:20:54 12/05/2024 text/html *exercise stress echo12/05/24CC : Cardiac follow Julio César HAWLEY is a 54 years-old Female with h/o SVT Hx of 3x ablation is here for 3 month follow up. She was last seen in the clinic on 09/17/24, since then she had Negative stress echo on 09/01/24 with Mild exercise impairment.She denies ER visits and hospitalizations since she was last seen. Today reports:Denies chest pain.Denies shortness of breath at rest. Has mild dyspnea on exertion.No orthopnea. No PNDs.Denies heart palpitations.Denies dizziness. Denies syncope or near syncope.No ankle or leg edema.No major bleeding events.No reported side effects from medications. Taking medications as prescribed with no missed doses.Denies snoring, daytime somnolence and AM headache.*Pt dose not have any lipid labs previously. dose not takes any statins. Previously:*Had Negative stress echo on 09/01/24 with Mild exercise impairment. Pratik Alejandre MD [address] [place], [address], [facility] - [facility] 12/05/2024 11:25:10 OBGyn Episode No OBEpisode recorded.
--- OUTSIDE RECORDS SUMMARY | 2025-03-08 00:53 | XMS_ITS | Clinical Summary ---
Author Organization [facility] Address [facility] [place] [address] Care Team Providers Care Vmware Consultant Name Role Phone Mike Kuo MD Primary Care Provider [phone] Rod Joaquin MD Unavailable Allergies Active Allergy Reactions Criticality Noted Date Comments Nuts Anaphylaxis High 09/20/2019 Psyllium Rash Low 09/20/2019 Oxycodone-Acetaminophen Unknown 05/28/2022 Medications Acetaminophen (TYLENOL) 325 MG Cap Tylenol (acetaminophe n) tablet 325 mg; take 1 tablet by mouth as directed as needed; 0; 0; 28-May-2013; Active 05/28/2013 Active Active Problems Problem Noted Date Diagnosed Date SVT (supraventricular tachycardia) ([facility] Social History Tobacco Use Types Packs/Day Years Used Date Smoking Tobacco: Former Cigarettes Q uit: 2007 Smokeless Tobacco: Never Alcohol Use Standard Drinks/Week [...] file Not on file Not on file Last Filed Vital Signs Vital Sign Reading Time Taken Comments Blood Pressure 127/66 12/01/2023 7:57 PM ACTIVITY LEADER Pulse 83 12/01/2023 7:57 PM ACTIVITY LEADER Temperature 37.1 C (98.8 F) 12/01/2023 7:57 PM ACTIVITY LEADER Respiratory Rate 18 12/01/2023 7:57 PM ACTIVITY LEADER Oxygen Saturation 97% 12/01/2023 7:57 PM ACTIVITY LEADER Inhaled Oxygen Concentration - - Weight 77.1 kg (170 lb) 05/28/2022 9:32 PM CDT Height 172.7 cm (5' 8 ) 05/28/2022 9:32 PM CDT Body Mass Index 25.85 05/28/2022 9:32 PM CDT Plan of Treatment Health Maintenance Due Date Last Done Comments Cervical Cancer Screening Pap Smear (Age 30 to 64) Every 3 Years 1972 Colorectal Cancer Screening Colonoscopy (10 Years) 1972 Annual Physical 1975 Hepatitis C 1990 Hepatitis B Vaccines (1 of 3 - 19+ 3-dose series) 1991 Cervical Cancer Screening Pap with HPV Testing (Age 30 to 64) Every 5 Years 2002 Cervical Cancer Screening with HPV 2002 Mammogram Screening 2012 DTaP, Tdap and Td Vaccines (5 - Td or Tdap) 11/11/2019 11/11/2009, 05/19/1982, 09/30/1973, Additional history exists Zoster Vaccines (1 of 2) 2022 COVID-19 Vaccine ( season) 2024 Meningococcal B Vaccine Aged Out No l onger eligible based on patient's age to complete this topic Meningococcal Vaccine Aged Out No juan c warren eligible based on patient's age to complete this topic Pneumococcal Vaccine: Pediatrics (0 to 5 Years) and At-Risk Patients (6 to 64 Years) Aged Out No longer eligible based on patient's age to complete this topic RSV Immunizations Under 20 Months Aged Out No longer eligible based on patient's age to complete this topic Insurance Care Teams Vmware Consultant Relationship Specialty Start Date End Date Mike Kuo MD [address] [place] [address] PCP - General INTERNAL MEDICINE 12/18/16 Rod Joaquin MD [address] [place] [id number] [employer] Career Information Specialist CARDIOVASCULAR DISEASE 12/18/16
--- OUTSIDE RECORDS SUMMARY | 2025-03-08 00:54 | XMS_ITS | Data Portability ---
Author Organization [place] [facility] Address [address] [place] [id number] Assessment No assessment recorded. Plan of Treatment Reminders Order Date Submit Date Provider Last Modified By Organization Details Last Modified Time Details Appointments None recorded. Lab rapid SARS CoV 2 Ag, QL IA, respiratory specimen 2019 020 [email or web address] 7 [facility], [address] [place] [address], Suite [facility], [place], [address], 0 14:02:11 Referral None recorded. Procedures None recorded. Surgeries None recorded. Imaging None recorded. Medication Orders prednisone 20 mg tablet 2020 021 [facility] #[id number], [address] [facility] [place], [id number], 1 16:24:30 doxycycline hyclate 100 mg tablet 2020 021 [facility] #[id number], [address] [facility] [place], [id number], 1 16:24:31 tobramycin 0.3 % eye drops 2018 019 [facility], [address] [facility] [place], [id number], 0 13:24:22 prednisone 20 mg tablet 2018 019 [email or web address] [facility] #92262, [address] [facility] [place], [id number], 0 13:24:33 naproxen 500 mg tablet [address] [facility] #32792, [address] [place], [place], [id number], 9 12:54:43 Tylenol-Cod eine #3 300 mg-30 mg tablet [address] [facility] #09478, [address] [place], [place], [id number], 9 12:55:36 Patient TargetsNo targets recorded. Patient Instructions Encounter Date Encounter Id Patient Instructions Last Modified By Organization Details Last Modified Time 08/21/2017 [id number] knee pain or injury: care instructions [email or web address] Not available 08/21/2017 15:42:23 Discharge Instructions [email or web address] Not available 08/21/2017 15:42:23 You are referred to [facility] for follow-up: [id number] [email or web address] Not available 08/21/2017 15:42:03 06/16/2019 [id number] pinkeye: care instructions Not available 06/16/2019 13:48:49 Discharge Instructions Not available 06/16/2019 13:48:49 blepharitis: car e instructions Not available 06/16/2019 13:48:49 09/21/2020 [id number] coronavirus (covid-19): care instructions [email or web address] Not available 09/21/2020 14:02:11 Discharge Instructions [email or web address] Not available 09/21/2020 14:02:11 05/25/2021 [id number] insect stings an d bites: care instructions [email or web address] Not available 05/25/2021 16:24:21 Discharge Instructions [email or web address] Not available 05/25/2021 16:24:21 Reason for Referral None Reported. Results Created Date Observation Date Name Description Value Unit Range Abnormal Flag Note LastModifiedBy Organization Detail LastModifiedTime 09/21/2009/21/2020 rapid SARS CoV 2 Ag, QL IA, respi rator y speci men Rapid SARS Antigen positi [place] [id number] [facility] [address], [place], [address], 09/21/2020 13:27:46 Result Notes None recorded. Problems Name Problem SNOMED Code Status Onset Date Resolution Date Notes Provider Name and Address Organization Details Recorded Time Exposure to SARS-CoV-2 Completed 201905/25/2021 Amada Byrd [facility] 1 15:58:28 Insect bite - wound 227608400 Active 2020 Amada Byrd [facility] 1 15:58:35 Pain in right knee Completed 201606/16/2019 [facility] [place] 12[place]57:05 Conjunctivi tis 4345514 Completed 201809/21/2020 DEBBY THOMPSON [facility] 0 13:24:53 Problem Notes None recorded. Procedures Surgical History Date Name Laterality Status Provider Name and Address Organization Details Recorded Time Knee Surgery completed ALBERT RAMOS [facility] 08/21/2017 15:37:26 Shoulder surgery completed [facility] 06/16/2019 12:57:30 Back Surgery completed [facility] 06/16/2019 12:57:36 procedure on heart completed [facility] 06/16/2019 12:58:05 Hysterectomy completed [facility] 06/16/2019 12:58:13 Imaging Results None recorded. Procedure Notes None recorded. Medical Equipment None Reported. Allergies Allergen ID Allergen Name Allergen Category Reaction Reaction Severity Criticality Documentation Date Start Date Code Code System Note Provider Name and Address Organization Details Recorded Time 51825 Substance with sulfonami de structure and antibacte rial mechanism of action (substanc e) medicatio n Not available Not available Not available 08/21/2017 80070 800 SNOMED Sav Jorge [facility] 7 15:31:00 [id number] Cefzil medicatio n Not available Not available Not available 06/16/2019 59441 1 RxNorm GENI Eduardo - [facility] 9 12:53:35 Medications Name Sig Start Date Stop Date Status Note LastModified by Organization Details LastModified Time ipratropium 0.5 mg-albutero l 3 mg (2.5 mg base)/3 mL nebulizatio n soln 09/21 completed Not Available Not Available Not Available cetirizine 10 mg tablet active Not Available Not Available Not Available azithromyci n 250 mg tablet 09/21 completed Not Available Not Available Not Available ibuprofen 800 mg tablet active Not Available Not Available Not Available Glucagon Emergency Kit 1 mg solution for injection 09/21 completed Not Available Not Available Not Available valacyclovi r 1 gram tablet 06/16 completed Not Available Not Available Not Available hydrocodone 5 mg-acetamin ophen 325 mg tablet 09/21 completed Not Available Not Available Not Available prednisone 20 mg tablet 2 tab po qd for 2 days then 1 tab po qd for 2 days then 1/2 tab po qd for 2 days active Not Available Not Available No t Available atenolol 25 mg tablet active Not Available Not Available No t Available Nexium 40 mg capsule,del ayed release 06/16 completed Not Available Not Available Not Available phentermine 37.5 mg tablet TAKE ONE TABLET BY MOUTH ONE TIME DAILY active Not Available Not Available No t Available valacyclovi r 500 mg tablet active Not Available Not Available Not Available omeprazole 40 mg capsule,del ayed release 09/21 completed Not Available Not Available Not Available alprazolam 0.5 mg tablet 06/16 completed Not Available Not Available Not Available methocarbam ol 750 mg tablet 09/21 completed Not Available Not Available Not Available benzonatate 100 mg capsule 09/21 completed Not Available Not Available Not Available hydrocodone 7.5 mg-acetamin ophen 325 mg tablet TAKE ONE TABLET BY MOUTH EVERY 4 TO 6 HOURS NEEDED active Not Available Not Available No t Available paroxetine 20 mg tablet active Not Available Not Available Not Available pantoprazol e 40 mg tablet,ranjit yed release 09/21 completed Not Available Not Available Not Available Proctofoam HC 1 %-1 % APPLY TO THE AFFECTED AREA(S) RECTALLY TWICE DAILY UNTIL GONE active Not Available Not Available No t Available tobramycin 0.3 % eye drops INSTILL 1 DROP INTO AFFECTED EYE(S) BY OPHTHALMI C ROUTE EVERY 4 HOURS 09/21 completed Not Available Not Available Not Available olopatadine 0.1 % eye drops active Not Available Not Available Not Available prednisone 50 mg tablet 09/21 completed Not Available Not Available Not Available lidocaine 5 % topical patch 09/21 completed Not Available Not Available Not Available montelukast 10 mg tablet active Not Available Not Available Not Available hydroxyzine HCl 25 mg tablet 09/21 completed Not Available Not Available Not Available epinephrine 0.3 mg/0.3 mL injection, auto-inject or active Not Available Not Available Not Available Tylenol-Cod eine #3 300 mg-30 mg tablet Take 1 tablet every 6 hours by oral route as needed. 06/16 completed Not Available Not Available Not Available methylpredn isolone 4 mg tablets in a dose pack 09/21 completed Not Available Not Available Not Available ondansetron 4 mg disintegrat ing tablet 06/16 completed Not Available Not Available Not Available fluticasone propionate 50 mcg/actuati on nasal spray,suspe nsion active Not Available Not Available Not Available sertraline 50 mg tablet active Not Available Not Available Not Available doxycycline hyclate 100 mg tablet TAKE 1 TABLET BY MOUTH TWICE DAILY FOR 7 DAYS active Not Available Not Available No t Available naproxen 500 mg tablet Take 1 tablet twice a day by oral route as needed. 06/16 completed Not Available Not Available Not Available oxycodone 5 mg tablet active Not Available Not Available No t Available metformin ER 500 mg tablet,exte nded release 24hr (osmotic) active Not Available Not Available No t Available Makayla-Hydrol ac 12 % topical cream 09/21 completed Not Available Not Available Not Available Mucinex D 60 mg-600 mg tablet,exte nded release 09/21 completed Not Available Not Available Not Available metformin active Not Available Not January ilable Not Available ProAir HFA 90 mcg/actuati on aerosol inhaler active Not Available Not Available Not Available Nasal Decongestan t (oxymetazol ine) 0.05 % spray 09/21 completed Not Available Not Available Not Available Voltaren 1 % topical gel 09/21 completed Not Available Not Available Not Available cholecalcif gaurav (vitamin D3) 50 mcg (2,000 unit) tablet 06/16 completed Not Available Not Available Not Available Suprep Bowel Prep Kit 17.5 gram-3.13 gram-1.6 gram oral solution 09/21 completed Not Available Not Available Not Available lidocaine 5 % topical ointment active Not Available Not Available Not Available Pazeo 0.7 % eye drops 09/21 completed Not Available Not Available Not Available Vitals Date Recorded Heart rate Respiratory rate Oxygen saturation Oxygen saturation in Arterial blood by Pulse oximetry Body temperature Body weight Systolic blood pressure Diastolic blood pressure Provider Name and Address Organization Details Last Updated DateTime 0 75 /min 16 /min 96 % 96 % 96.7 [degF] 07919.9 2 g 115 mm[Hg] 73 mm[Hg] DEBBY THOMPSON [facility], [facility] 0 13:23:14 Date Recorded Heart rate Respiratory rate Oxygen saturation Oxygen saturation in Arterial blood by Pulse oximetry Body temperature Systolic blood pressure Diastolic blood pressure Provider Name and Address Organization Details Last Updated DateTime 1 76 /min 18 /min 97.9 % 97.9 % 67 [degF] 99 mm[Hg] 65 mm[Hg] Amada Byrd [facility], [facility] 1 15:53:59 Date Recorded Heart rate Respiratory rate Oxygen saturation Oxygen saturation in Arterial blood by Pulse oximetry Body temperature Body weight Systolic blood pressure Diastolic blood pressure Provider Name and Address Organization Details Last Updated DateTime 7 70 /min 16 /min 99 % 99 % 97.9 [degF] 74305.6 6 g 107 mm[Hg] 71 mm[Hg] Sav Patel [facility], [facility] 7 15:30:34 Date Recorded Heart rate Respiratory rate Oxygen saturation Oxygen saturation in Arterial blood by Pulse oximetry Body temperature Body height Body weight Systolic blood pressure Diastolic blood pressure Provider Name and Address Organization Details Last Updated DateTime 9 69 /min 16 /min 97 % 97 % 98 [degF] 172.72 cm 216797. 51 g 99 mm[Hg] 69 mm[Hg] Ahsan Smith [facility] 9 12:53:09 Social History Question Answer Notes LastModified by Organizat ion Details LastModified Time Tobacco Smoking Status Never Smoker ALBERT RAMOS judit [facility] 08/21/2017 15:37:16 Alcohol Use Occasional Information n ot available 05/25/2021 What Was The Date Of Your Most Recent Tobacco Screening? 05/25/2021 [email or web address] Information not available 05/25/2021 Are You Passively Exposed To Smoke? No Information not available 08/21/2017 How Much Tobacco Do You Smoke? No Information not available 08/21/2017 Sex: Unknown Functional Status None recorded. Mental Status None recorded. Family History Nothing Reported. Medical History Condition Response Other Anxiety/Depression Y Acid Refulx/GERD Y Gynecological History Statement/Question Response Current Control Method Hysterectom y Obstetrics History GPAL:G 0 P 0 0 0 0 Past Encounters Encounter ID Performer Location Encounter Start Date Encounter Closed Date Diagnosis/Indication Diagnosis SNOMED-CT Code Diagnosis ICD10 Code Diagnosis Note [id number] Nicolas Underwood MD [facility] [address] [place] [id number] 08/21/2017 15:25:03 08/21/2017 15:51:46 Knee pain 62536819 M25.561 [id number] [facility] [address] [place] [address] 06/16/2019 12:32:21 06/16/2019 14:11:26 Acute conjunctivitis 08206896 H10.31 [id number] Nicolas Underwood MD [facility] [address] [place] [id number] 09/21/2020 13:02:27 09/21/2020 14:04:27 Exposure to SARS-CoV-2 442342884 Z20.828 COVID-19 798061595 U07.1 [id number] Nicolas Underwood MD [facility] [address] [place] [id number] 2 05/25/2021 15:23:41 05/25/2021 16:26:03 Insect bite reaction 229561387 T63.481A Health Concerns Section Related Observation LastModified by Organization Detai ls LastModified Time None Recorded Concern Status LastModified by Organization Details LastModified Time None Recorded Advance Directives Directive None Recorded Payers Encounter Date Sequence Insurance Name Policy Number Policy Varma Covered Member ID Varma Member ID Guarantor Name 08/21/2017 1 [employer] [place] Spencer Junk [id number] Renata Junk 06/16/2019 1 [place] PRIOR TO 2024 - [employer] () Spencer Junk [id number] Renata Junk 09/21/2020 1 [place] PRIOR TO 2024 - [employer] () Spencer Junk [id number] Renata Junk 05/25/2021 1 [place] PRIOR TO 2024 - [employer] () Spencer Junk [id number] Renata Junk Notes Date Note Type Note Provider Name and Address Organization Details Recorded Time 08/21/2017 text/html KneeReported bypatient.Location:rig ht Quality:aching Severity:moderate Onset/Duration:day(s) ago Previous Surgery:surgical procedure: (meniscus) Prior Imaging:none Previous Injections:none Previous PT:none [place] [address], [place], [address], [facility], [facility] 08/21/2017 15:48:44 06/16/2019 text/html Eye Pain or RednessReported bypatient.Location:rig ht Severity:no pain Onset/Duration:2 day(s) ago Timing:constant Context:previous history of recurrent corneal erosion Modifying Factors:nothing gives relief Associated Symptoms:no sensitivity to light; pain is not worse with eye movement; no diplopia; no photophobia; no headache;redness;drain age [facility] 06/16/2019 13:49:33 09/21/2020 text/html Upper Respirator y SymptomsReported bypatient.Location:hea d; chest; throat Onset/ Duration:Possible exposure to COVID-19 several days ago. Timing:No symptoms at this time Severity:no pain Context:sick contact Modifying Factors:OTC medication Associated Symptoms:no sputum production; no shortness of breath; no wheezing; no change in number of pillows needed to sleep at night; no sweats; no fever; no muscle pain; no morning cough; no sore throat; no vomiting; no nausea; no diarrhea; [place] [address],[place] [address], [place], [address], [facility] [employer] [facility] 09/21/2020 14:02:40 05/25/2021 text/html Rash Skin LesionReported bypatient.Location:leg s Quality:itchy;painful Severity:mild Onset/Duration:1 day(s) ago Timing:episodic Alleviating Factors:nothing gives relief Aggravating Factors:nothing makes it worse Associated Symptoms:no fever; no cold symptoms; no nausea; no vomiting; no diarrhea Treatment History:[place] [address] [address], [place], [address], [facility] [facility] [employer] [facility] 05/25/2021 16:24:42 OBGyn Episode No OBEpisode recorded.
[2025-03-08] MEDS: LACTATED RINGERS 1,000 ML 30 ML IV CONT ×2 (06:30→08:07)
--- NOTE | 2025-03-08 06:45 | WPDHPUPDATE1 ---
History and Physical Update Update Date/Time: 03/08/25 06:45 History and Physical has been reviewed, including an updated exam of the patient. There are NO changes in the patient's condition. Risks, benefits, and alternatives have been discussed and questions answered. Patient agrees to proceed with procedure.
--- NOTE | 2025-03-08 06:59 | WPDANESEPPF ---
Anes - Initial Pre Proc Eval Procedure: Operation Date: 03/08/25 07:30 Proposed Procedures p Right Knee Arthroscopy, Partial Meniscectomy, Proceed As Indicated - Boby Rocha MD Date/Time: 03/08/25 06:59 Surgeon: Boby Rocha MD Pre Op Diagnosis: right knee medial meniscal tear Patient Data Age: 54 Gender: F Height: 1.7 m Weight: 103.2 kg Allergies Allergy/AdvReac Type Severity Reaction Status Date / Time Sulfa (Sulfonamide Allergy rash Verified 02/24/25 14:43 Antibiotics) Home Medications ?Medication ?Instructions ?Recorded ?Confirmed ?Type atenolol 25 mg tablet 25 mg PO TID 12/08/24 02/24/25 History cetirizine 10 mg tablet (Zyrtec) 10 mg PO DAILY 12/08/24 02/24/25 History cholecalciferol (vitamin D3) 25 25 mcg PO DAILY 12/08/24 02/24/25 History mcg (1,000 unit) capsule hydrocodone 7.5 mg-acetaminophen 1 tablet PO Q6H PRN pain 12/08/24 02/24/25 History 300 mg tablet magnesium hydroxide 400 mg (170 mg 400 mg PO HS 12/08/24 02/24/25 History magnesium) chewable tablet mecobalamin (vitamin B12) 1,000 1,000 mcg PO DAILY 12/08/24 02/24/25 History mcg lozenges meloxicam 7.5 mg tablet 7.5 mg PO DAILY 12/08/24 02/24/25 History montelukast 10 mg tablet 10 mg PO DAILY 12/08/24 02/24/25 History (Singulair) duloxetine 60 mg capsule,delayed 60 mg PO DAILY 02/24/25 02/24/25 History release Patient hx anesthesia problems: other (Pt is a red head, states that she does remember waking up during shoulder sx approx 15 years ago. ) Family hx anesthesia problems: none Results Review: All pre-operative results and documents have been reviewed as part of the pre-operative evaluation. [facility]LY [facility], [facility] Surgical History Surgical History History of surgery Heart, Back, Rt knee, Rt Should, Gall bladder Social History Social History Smoking packs per day: 1 Smoking cigarettes per day: 20.0 Years smoked: 15 Smoking pack-years: 15.00 Smoking status: Former smoker Tobacco type: cigarettes Smoking end date: 02/25/04 Alcohol intake: current Substance use: never Current Housing: Decline to Answer Concerned About Future Housing: Decline to Answer Difficulty Paying Gas/Electric Bills: Decline to Answer Difficulty Paying for Meds: Decline to Answer Currently Unemployed: Decline to Answer Education: Decline to Answer Difficulty w/ Childcare or Family Care: Decline to Answer Living arrangements: with family Spiritual care concerns: No Anes - Eval Final PreProcedure Day of Procedure 03/08/25 06:59 Patient weight: obese Lungs: normal air movement Airway: Mallampati scale class II Neurological: alert and oriented Last oral intake: >/= 8 hours ASA classification: II Emergent: no Anesthetic plan: proceed Anesthesia type and monitoring: general LMA and standard monitoring Results Review: All pre-operative results and documents have been reviewed as part of the pre-operative evaluation. Asthma, stable of recent, hx of SVT and palpitations, B trae taken this am (next dose would be approx 1400 hrs). BMI 35, pt can walk 1-2 fos, no cp or sob. Informed Consent: The patient's anesthetic plan and its attendant risks and benefits were discussed with the patient/family/POA. Questions were solicited and answers provided to the satisfaction of the patient/family/POA.
[2025-03-08] MEDS: ACETAMINOPHEN 500 MG TABLET 1000 MG PO (07:09)
[2025-03-08] MEDS: KETOROLAC 15 MG/ML VIAL (*BKC) IV PUSH (07:09)
[2025-03-08] MEDS: ceFAZolin 2 GM/D5W 50 ML 2 GM/50 ML BAG IVPB (07:27)
--- NOTE | 2025-03-08 08:02 | P.OP_ITS ---
Procedure Note - Detailed Date of Procedure 03/08/25 Pre-op Diagnosis RIGHT knee medial meniscal tear Post-op Diagnosis Same Procedure Performed RIGHT knee arthroscopy with partial meniscectomy Surgeon Boby Rocha MD Anesthesia General Indications Pain, Locking and Catching Description of Procedure Patient brought to operating room # 8. An anesthetic was administered. The knee was sterilely prepped and draped in the usual manner. Standard portals were used. Superior medial portal was used for the outflow cannula, inferior lateral portal was used for the scope, inferior medial portal was used for the instruments. Arthroscopy was performed, the patellar femoral joint degenerative changes. The medial compartment showed a complex tear. The lateral compartment showed fraying. The ACL was intact. Using baskets and terri the meniscal te ar was trimmed back to a stable base so the nothing further could be pulled into the joint. Any loose or delaminated fragments were gently trimmed to a stable base. The plica was debriede as well. At this point the instruments were withdrawn, sutures placed and patient left the operating room in satisfactory condition. Estimated Blood Loss 20 Drains No Packing No Pathology None sent Complications No immediate complications Condition Stable Disposition PACU [facility] Billing Surgery - Charge Forward: Surgery Billing ([id number] MMT)
[2025-03-08] MEDS: LIDO 1%/EPINEPHRINE 1:100,000 20 ML VIAL 10 ML INFILTRATE (08:03)
== END 2025-03-08 09:39 | disposition home or self-care (01) ==
PROVIDERS: Visit Provider Orthopaedic Surgery
PROC: (CPT 29870; principal; 2025-03-08 07:30)
DX: S83.231A Complex tear of medial meniscus, current injury, right knee, initial encounter (principal); J45.909 Unspecified asthma, uncomplicated; I47.10 Supraventricular tachycardia, unspecified; R00.2 Palpitations; X58.XXXA Exposure to other specified factors, initial encounter; E66.9 Obesity, unspecified; Z68.36 Body mass index [BMI] 36.0-36.9, adult; Z79.891 Long term (current) use of opiate analgesic; Z98.890 Other specified postprocedural states; Z98.1 Arthrodesis status; Z87.891 Personal history of nicotine dependence
CPT/HCPCS: 29881; A9270; J0690; J1100; J1885; J2003; J2004; J2250; J2405; J2704; J3010; J7120